=== PATIENT | female | born 1935 | race Caucasian/White ===

== ENCOUNTER 2018-04-11 07:30 | Emergency (ER) | payer MEDICARE, OTHER ==
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
[2018-04-11 08:00] VITALS: BP 139/59
== END 2018-04-11 09:00 | disposition home or self-care (01) ==
LOC: LL.ED 07:30
DX: I25.810 Atherosclerosis of coronary artery bypass graft(s) without angina pectoris (principal); E11.42 Type 2 diabetes mellitus with diabetic polyneuropathy; E78.5 Hyperlipidemia, unspecified; I10 Essential (primary) hypertension; M15.0 Primary generalized (osteo)arthritis; Z88.1 Allergy status to other antibiotic agents; Z88.8 Allergy status to other drugs, medicaments and biological substances; Z79.82 Long term (current) use of aspirin; Z79.899 Other long term (current) drug therapy
CPT/HCPCS: 99284

== ENCOUNTER 2018-05-07 14:27 | Emergency (ER) | payer OTHER ==
[2018-05-07 15:00] LABS: CHLORIDE,CL 101 mmol/L (98-107); SODIUM,NA 140 mmol/L (136-145)
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
== END 2018-05-07 16:07 | disposition home or self-care (01) ==
LOC: LL.ED 14:27
DX: S80.12XA Contusion of left lower leg, initial encounter (principal); E11.40 Type 2 diabetes mellitus with diabetic neuropathy, unspecified; F32.9 Major depressive disorder, single episode, unspecified; F41.9 Anxiety disorder, unspecified; E03.9 Hypothyroidism, unspecified; I10 Essential (primary) hypertension; I25.2 Old myocardial infarction; E78.00 Pure hypercholesterolemia, unspecified; I25.810 Atherosclerosis of coronary artery bypass graft(s) without angina pectoris; Z95.1 Presence of aortocoronary bypass graft; Z95.0 Presence of cardiac pacemaker; Z88.1 Allergy status to other antibiotic agents; Z79.82 Long term (current) use of aspirin; Z79.899 Other long term (current) drug therapy; Z79.84 Long term (current) use of oral hypoglycemic drugs
CPT/HCPCS: 36415; 72040; 72080; 80053; 81001; 85025; 99285

== ENCOUNTER 2018-05-20 22:09 | Observation (INO) | payer MEDICARE, OTHER ==
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
[2018-05-20] MEDS ORDERED: Sodium Chloride 0.9% 10 ML Syringe FLUSH PRN (22:38)
[2018-05-20] MEDS ORDERED: Metoprolol Tartrate 5 MG/5 ML SDV IVPUSH ONE (22:38)
[2018-05-20] MEDS ORDERED: Famotidine 20 MG/2 ML SDV IVPUSH ONE (22:38)
[2018-05-20] MEDS ORDERED: Nitroglycerin 0.4 MG Tab.SL SL STA (23:17)
[2018-05-20 23:29] LABS: CHLORIDE,CL 100 mmol/L (98-107); SODIUM,NA 141 mmol/L (136-145)
[2018-05-21] MEDS ORDERED: Acetaminophen/Codeine 300-30 MG Tab PO PRN (00:13)
[2018-05-21] MEDS ORDERED: Lidocaine 5% 700 MG Patch TOP PRN (00:13)
[2018-05-21] MEDS ORDERED: Acetaminophen 325 MG Tab PO PRN (00:15)
[2018-05-21] MEDS ORDERED: Sodium Chloride 0.9% 10 ML Syringe FLUSH PRN (00:15)
[2018-05-21] MEDS: Isosorbide Mononitrate 30 MG Tab.ER PO SCH ×2 (01:37→19:18)
[2018-05-21] MEDS: Levothyroxine 100 MCG Tab PO SCH ×2 (01:37→19:18)
[2018-05-21] MEDS: Enoxaparin 60 MG/0.6 ML Syringe SUBCUT SCH ×2 (01:37→23:35)
[2018-05-21] MEDS: Temazepam 15 MG Cap PO PRN ×2 (01:37→23:38)
[2018-05-21] MEDS: Calcium Carbonate 500 MG Tab.Chew PO SCH (07:29)
[2018-05-21] MEDS: Lisinopril 10 MG Tab PO SCH (07:29)
[2018-05-21] MEDS: Cholecalciferol (Vitamin D3) 1,000 Unit Tab PO SCH (07:30)
[2018-05-21] MEDS: Hydrochlorothiazide 25 MG Tab PO SCH (07:30)
[2018-05-21] MEDS: Multivitamins with Iron and Minerals Tab.Chew PO SCH (07:30)
[2018-05-21] MEDS: metFORMIN 500 MG Tab PO SCH ×2 (07:31→17:29)
[2018-05-21] MEDS: Betamethasone Dipropionate/Clotrimazole 0.05-1% Crm 15 GM Tube TOP SCH ×2 (07:32→17:29)
[2018-05-21] MEDS: Psyllium Husk Powder Sugar Free 5.85 GM Packet PO SCH ×2 (07:32→17:30)
[2018-05-21] MEDS: GARLIC 100 MG PO SCH (08:35)
--- NOTE | 2018-05-21 11:19 | PCM.PN ---
- General Info Date of Service: 05/21/18 - Review of Systems General: Reports: Weakness HEENT: Denies: Headaches Pulmonary: Reports: No Symptoms Cardiovascular: Denies: Chest Pain Gastrointestinal: Denies: Diarrhea, Nausea Genitourinary: Reports: No Symptoms Musculoskeletal: Reports: No Symptoms Skin: Reports: No Symptoms Neurological: Reports: No Symptoms Psychiatric: Reports: No Symptoms - Patient Data Vitals - Most Recent: Last Vital Signs Temp 98.6 F 05/21/18 06:42 Pulse 87 05/21/18 06:42 Resp 18 05/21/18 06:42 BP 108/67 05/21/18 06:42 Pulse Ox 99 05/21/18 06:42 Weight - Most Recent: 128 lb 0.006 oz Lab Results Last 24 Hours: Laboratory Results - last 24 hr 05/20/18 05/20/18 05/20/18 Range/Units 22:40 22:40 22:40 WBC 8.1 (4.0-10.2) K/uL RBC 4.42 (3.77-5.09) M/uL Hgb 12.5 (11.7-15.5) g/dL Hct 39.4 (34.0-46.0) % MCV 89.1 (84.0-98.0) fL MCH 28.3 (28.2-33.3) pg MCHC 31.7 (31.7-36.0) g/dL RDW 14.4 H (11.2-14.1) % Plt Count 289 (150-350) K/uL Neut % (Auto) 46.2 (45.0-80.0) % Lymph % (Auto) 40.1 (10.0-50.0) % [place] % (Auto) 9.5 (2.0-14.0) % Eos % (Auto) 3.8 (0.0-5.0) % Baso % (Auto) 0.4 (0.0-2.0) % Neut # (Auto) 3.73 (1.40-7.00) K/uL Lymph # (Auto) 3.24 (0.50-3.50) K/uL [place] # (Auto) 0.77 (0.00-1.00) K/uL Eos # (Auto) 0.31 (0.00-0.50) K/uL Baso # (Auto) 0.03 (0.00-0.20) K/uL PT 10.0 (9.8-11.7) SEC INR 0.9 APTT 24.8 (22.1-29.8) SEC D-Dimer, Quantitative 572 H (0-400) ng/mL Sodium (136-145) mmol/L Potassium (3.5-5.1) mmol/L Chloride (98-107) mmol/L Carbon Dioxide (21.0-32.0) mmol/L BUN (7-18) mg/dL Creatinine (0.51-1.17) mg/dL Est Cr Clr Drug Dosing mL/min Estimated GFR (MDRD) mL/min Glucose (74-106) mg/dL Hemoglobin A1c (4.3-5.7) % Lactic Acid (0.4-2.0) mmol/L Uric Acid (2.6-7.2) mg/dL Calcium (8.5-10.1) mg/dL Magnesium (1.8-2.4) mg/dL Total Bilirubin (0.2-1.0) mg/dL AST (15-37) U/L ALT (12-78) U/L Alkaline Phosphatase (46-116) IU/L Creatine Kinase (26-308) U/L Creatine Kinase Index (0.0-2.5) % CK-MB (CK-2) (0.00-3.60) ng/mL Troponin I (0.000-0.056) ng/mL NT-Pro-B Natriuret Pep (0-125) pg/mL Total Protein (6.4-8.2) g/dL Albumin (3.4-5.0) g/dL Triglycerides (30-150) mg/dL Cholesterol (100-200) mg/dL LDL Cholesterol, Calc (0-100) mg/dL HDL Cholesterol (40-60) mg/dL TSH, Ultra Sensitive (0.358-3.740) mIU/mL 05/20/18 05/20/18 05/21/18 Range/Units 22:40 22:40 06:25 WBC (4.0-10.2) K/uL RBC (3.77-5.09) M/uL Hgb (11.7-15.5) g/dL Hct (34.0-46.0) % MCV (84.0-98.0) fL MCH (28.2-33.3) pg MCHC (31.7-36.0) g/dL RDW (11.2-14.1) % Plt Count (150-350) K/uL Neut % (Auto) (45.0-80.0) % Lymph % (Auto) (10.0-50.0) % [place] % (Auto) (2.0-14.0) % Eos % (Auto) (0.0-5.0) % Baso % (Auto) (0.0-2.0) % Neut # (Auto) (1.40-7.00) K/uL Lymph # (Auto) (0.50-3.50) K/uL [place] # (Auto) (0.00-1.00) K/uL Eos # (Auto) (0.00-0.50) K/uL Baso # (Auto) (0.00-0.20) K/uL PT (9.8-11.7) SEC INR APTT (22.1-29.8) SEC D-Dimer, Quantitative (0-400) ng/mL Sodium 141 (136-145) mmol/L Potassium 4.2 (3.5-5.1) mmol/L Chloride 100 (98-107) mmol/L Carbon Dioxide 32.5 H (21.0-32.0) mmol/L BUN 20 H (7-18) mg/dL Creatinine 0.86 (0.51-1.17) mg/dL Est Cr Clr Drug Dosing 34.35 mL/min Estimated GFR (MDRD) > 60 mL/min Glucose 163 H (74-106) mg/dL Hemoglobin A1c (4.3-5.7) % Lactic Acid 0.2 L (0.4-2.0) mmol/L Uric Acid 5.2 (2.6-7.2) mg/dL Calcium 9.3 (8.5-10.1) mg/dL Magnesium 2.0 (1.8-2.4) mg/dL Total Bilirubin 0.3 (0.2-1.0) mg/dL AST 21 (15-37) U/L ALT 26 (12-78) U/L Alkaline Phosphatase 106 (46-116) IU/L Creatine Kinase 65 32 (26-308) U/L Creatine Kinase Index 1.5 2.8 H (0.0-2.5) % CK-MB (CK-2) 1.00 0.90 (0.00-3.60) ng/mL Troponin I 0.000 0.000 (0.000-0.056) ng/mL NT-Pro-B Natriuret Pep 291 H (0-125) pg/mL Total Protein 7.7 (6.4-8.2) g/dL Albumin 3.7 (3.4-5.0) g/dL Triglycerides 165 H (30-150) mg/dL Cholesterol 254 H (100-200) mg/dL LDL Cholesterol, Calc 170 H (0-100) mg/dL HDL Cholesterol 51 (40-60) mg/dL TSH, Ultra Sensitive 13.391 H (0.358-3.740) mIU/mL 05/21/18 Range/Units 06:25 WBC (4.0-10.2) K/uL RBC (3.77-5.09) M/uL Hgb (11.7-15.5) g/dL Hct (34.0-46.0) % MCV (84.0-98.0) fL MCH (28.2-33.3) pg MCHC (31.7-36.0) g/dL RDW (11.2-14.1) % Plt Count (150-350) K/uL Neut % (Auto) (45.0-80.0) % Lymph % (Auto) (10.0-50.0) % [place] % (Auto) (2.0-14.0) % Eos % (Auto) (0.0-5.0) % Baso % (Auto) (0.0-2.0) % Neut # (Auto) (1.40-7.00) K/uL Lymph # (Auto) (0.50-3.50) K/uL [place] # (Auto) (0.00-1.00) K/uL Eos # (Auto) (0.00-0.50) K/uL Baso # (Auto) (0.00-0.20) K/uL PT (9.8-11.7) SEC INR APTT (22.1-29.8) SEC D-Dimer, Quantitative (0-400) ng/mL Sodium (136-145) mmol/L Potassium (3.5-5.1) mmol/L Chloride (98-107) mmol/L Carbon Dioxide (21.0-32.0) mmol/L BUN (7-18) mg/dL Creatinine (0.51-1.17) mg/dL Est Cr Clr Drug Dosing mL/min Estimated GFR (MDRD) mL/min Glucose (74-106) mg/dL Hemoglobin A1c 6.7 H (4.3-5.7) % Lactic Acid (0.4-2.0) mmol/L Uric Acid (2.6-7.2) mg/dL Calcium (8.5-10.1) mg/dL Magnesium (1.8-2.4) mg/dL Total Bilirubin (0.2-1.0) mg/dL AST (15-37) U/L ALT (12-78) U/L Alkaline Phosphatase (46-116) IU/L Creatine Kinase (26-308) U/L Creatine Kinase Index (0.0-2.5) % CK-MB (CK-2) (0.00-3.60) ng/mL Troponin I (0.000-0.056) ng/mL NT-Pro-B Natriuret Pep (0-125) pg/mL Total Protein (6.4-8.2) g/dL Albumin (3.4-5.0) g/dL Triglycerides (30-150) mg/dL Cholesterol (100-200) mg/dL LDL Cholesterol, Calc (0-100) mg/dL HDL Cholesterol (40-60) mg/dL TSH, Ultra Sensitive (0.358-3.740) mIU/mL Med Orders - Current: Current Medications Acetaminophen (Tylenol) 650 mg PO Q4H PRN PRN Reason: Pain Acetaminophen/Codeine Phosphate (Tylenol With Codeine No.3 300mg/30mg) 1 tab PO Q12HR PRN PRN Reason: Pain Betamethasone/Clotrimazole (Lotrisone) 1 gm TOP BID [facility] Last Admin: 05/21/18 07:32 Dose: 1 applic Calcium Carbonate/Glycine (Tums) 500 mg PO DAILY [facility] Last Admin: 05/21/18 07:29 Dose: 500 mg Cholecalciferol (Vitamin D3) 5,000 units PO DAILY [facility] Last Admin: 05/21/18 07:30 Dose: 5,000 units Enoxaparin Sodium (Lovenox) 60 mg SUBCUT Q24H [facility] Last Admin: 05/21/18 01:37 Dose: 60 mg Hydrochlorothiazide (Hydrochlorothiazide) 25 mg PO DAILY [facility] Last Admin: 05/21/18 07:30 Dose: 25 mg Isosorbide Mononitrate (Imdur) 30 mg PO BEDTIME [facility] Last Admin: 05/21/18 01:37 Dose: 30 mg Levothyroxine Sodium (Synthroid) 100 mcg PO BEDTIME [facility] Last Admin: 05/21/18 01:37 Dose: 100 mcg Lidocaine (Lidoderm 5%) 700 mg TOP Q12H PRN PRN Reason: Pain Lisinopril (Prinivil) 10 mg PO DAILY [facility] Last Admin: 05/21/18 07:29 Dose: 10 mg Metformin HCl (Glucophage) 500 mg PO BIDMEALS [facility] Last Admin: 05/21/18 07:31 Dose: 500 mg Multivitamins/Folic Acid/Vitamin C (Cerovite Jr) 1 each PO DAILY [facility] Last Admin: 05/21/18 07:30 Dose: 1 each Nitroglycerin (Nitrostat) 0.4 mg SL ONETIME STA Stop: 05/21/18 23:18 Last Admin: 05/20/18 23:27 Dose: 0.4 mg Non-Formulary Medication (Garlic [Garlic]) 100 mg PO DAILY [facility] Last Admin: 05/21/18 08:35 Dose: Not Given Psyllium Husk (Metamucil Sugar Free) 1 pkt PO BID [facility] Last Admin: 05/21/18 07:32 Dose: 1 pkt Sodium Chloride (Saline Flush) 10 ml FLUSH ASDIRECTED PRN PRN Reason: Keep Vein Open Sodium Chloride (Saline Flush) 10 ml FLUSH Q12HR PRN PRN Reason: Keep Vein Open Temazepam (Restoril) 15 mg PO BEDTIME PRN PRN Reason: Insomnia Last Admin: 05/21/18 01:37 Dose: 15 mg Discontinued Medications Famotidine (Pepcid) 40 mg IVPUSH ONETIME ONE Stop: 05/20/18 22:39 Last Admin: 05/20/18 22:51 Dose: 40 mg Metoprolol Tartrate (Lopressor) 2.5 mg IVPUSH ONETIME ONE Stop: 05/20/18 22:39 Last Admin: 05/20/18 22:51 Dose: 2.5 mg - Exam General: Alert (daughter denies confusion at home), Oriented HEENT: Pupils Equal, Pupils Reactive, EOMI, Mucous Membr. Moist/[place] Neck: Supple Lungs: Clear to Auscultation, Normal Respiratory Effort Cardiovascular: Regular Rate, Regular Rhythm GI/Abdominal Exam: Normal Bowel Sounds, Soft, Non-Tender, No Organomegaly, No Distention, No Abnormal Bruit, No Mass, Pelvis Stable (Female) Exam: Deferred Back Exam: Normal Inspection, Full Range of Motion Extremities: Normal Inspection, Normal Range of Motion, Non-Tender, No Pedal Edema, Normal Capillary Refill Neurological: No New Focal Deficit (patient's daughter denies confusion at home) Psy/Mental Status: Alert, Normal Affect, Normal Mood - Problem List & Annotations (1) CHF (congestive heart failure) SNOMED Code(s): 70834797 Code(s): I50.9 - HEART FAILURE, UNSPECIFIED Status: Acute Priority: High Current Visit: No Onset Date: 05/20/18 Qualifiers: Heart failure type: unspecified Heart failure chronicity: acute Qualified Code(s): I50.9 - Heart failure, unspecified Annotation/Comment:: lisinopril therapy for blood pressure control and treatment of her CHF. Consider echocardiogram on an outpatient basis. (2) Elevated d-dimer SNOMED Code(s): 527559112 Code(s): R79.89 - OTHER SPECIFIED ABNORMAL FINDINGS OF BLOOD CHEMISTRY Status: Acute Priority: High Current Visit: No Onset Date: 05/20/18 Annotation/Comment:: D Dimer ordered for AM (3) Hypertension SNOMED Code(s): 31596783 Code(s): I10 - ESSENTIAL (PRIMARY) HYPERTENSION Status: Chronic Priority : Medium Current Visit: No Qualifiers: Hypertension type: essential hypertension Qualified Code(s): I10 - Essential (primary) hypertension Annotation/Comment:: Continue to observe closely and monitor BP - Problem List Review Problem List Initiated/Reviewed/Updated: Yes - My Orders Last 24 Hours: My Active Orders 05/21/18 Breakfast Heart Healthy Diet [DIET] - Plan Plan:: As above
[2018-05-22 07:58] LABS: CHLORIDE,CL 101 mmol/L (98-107); SODIUM,NA 140 mmol/L (136-145)
[2018-05-22] MEDS: Multivitamins with Iron and Minerals Tab.Chew PO SCH (08:11)
[2018-05-22] MEDS: metFORMIN 500 MG Tab PO SCH (08:13)
[2018-05-22] MEDS: Hydrochlorothiazide 25 MG Tab PO SCH (08:13)
[2018-05-22] MEDS: Lisinopril 10 MG Tab PO SCH (08:14)
[2018-05-22] MEDS: Cholecalciferol (Vitamin D3) 1,000 Unit Tab PO SCH (08:14)
[2018-05-22] MEDS: Calcium Carbonate 500 MG Tab.Chew PO SCH (08:16)
[2018-05-22] MEDS: GARLIC 100 MG PO SCH (08:19)
[2018-05-22] MEDS: Psyllium Husk Powder Sugar Free 5.85 GM Packet PO SCH (08:20)
[2018-05-22] MEDS: Betamethasone Dipropionate/Clotrimazole 0.05-1% Crm 15 GM Tube TOP SCH (08:21)
--- NOTE | 2018-05-22 09:12 | PCM.DCSUM1 ---
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 Negative (NEGATIVE) Urine Urobilinogen 0.2 (0.2-1.0) E.U./dL Ur Leukocyte Esterase Trace H (NEGATIVE) Urine RBC 0-5 /HPF Urine WBC 5-10 H /HPF Ur Epithelial Cells Few /LPF Urine Bacteria Rare (NONE TO FEW) /HPF 05/22/18 05/22/18 05/22/18 Range/Units 06:55 06:55 06:55 WBC 8.6 (4.0-10.2) K/uL RBC 4.10 (3.77-5.09) M/uL Hgb 11.5 L (11.7-15.5) g/dL Hct 36.2 (34.0-46.0) % MCV 88.3 (84.0-98.0) fL MCH 28.0 L (28.2-33.3) pg MCHC 31.8 (31.7-36.0) g/dL RDW 14.2 H (11.2-14.1) % Plt Count 296 (150-350) K/uL Neut % (Auto) 56.5 (45.0-80.0) % Lymph % (Auto) 30.8 (10.0-50.0) % [place] % (Auto) 9.0 (2.0-14.0) % Eos % (Auto) 3.3 (0.0-5.0) % Baso % (Auto) 0.4 (0.0-2.0) % Neut # (Auto) 4.84 (1.40-7.00) K/uL Lymph # (Auto) 2.64 (0.50-3.50) K/uL [place] # (Auto) 0.77 (0.00-1.00) K/uL Eos # (Auto) 0.28 (0.00-0.50) K/uL Baso # (Auto) 0.03 (0.00-0.20) K/uL PT (9.8-11.7) SEC INR APTT (22.1-29.8) SEC D-Dimer, Quantitative 715 H (0-400) ng/mL Sodium 140 (136-145) mmol/L Potassium 3.9 (3.5-5.1) mmol/L Chloride 101 (98-107) mmol/L Carbon Dioxide 31.5 (21.0-32.0) mmol/L BUN 20 H (7-18) mg/dL Creatinine 0.73 (0.51-1.17) mg/dL Est Cr Clr Drug Dosing 40.47 mL/min Estimated GFR (MDRD) > 60 mL/min Glucose 116 H (74-106) mg/dL Hemoglobin A1c (4.3-5.7) % Lactic Acid (0.4-2.0) mmol/L Uric Acid (2.6-7.2) mg/dL Calcium 9.3 (8.5-10.1) mg/dL Magnesium (1.8-2.4) mg/dL Total Bilirubin 0.3 (0.2-1.0) mg/dL AST 10 L (15-37) U/L ALT 13 (12-78) U/L Alkaline Phosphatase 94 (46-116) IU/L Creatine Kinase 28 (26-308) U/L Creatine Kinase Index 2.5 (0.0-2.5) % CK-MB (CK-2) 0.70 (0.00-3.60) ng/mL Troponin I 0.000 (0.000-0.056) ng/mL NT-Pro-B Natriuret Pep 118 (0-125) pg/mL Total Protein 6.8 (6.4-8.2) g/dL Albumin 3.3 L (3.4-5.0) g/dL Triglycerides (30-150) mg/dL Cholesterol (100-200) mg/dL LDL Cholesterol, Calc (0-100) mg/dL HDL Cholesterol (40-60) mg/dL TSH, Ultra Sensitive (0.358-3.740) mIU/mL Specimen Type Urine Color Urine Appearance Urine pH (5.0-9.0) Ur Specific [place] (1.005-1.030) Urine Protein (NEGATIVE) mg/dL Urine Glucose (UA) (NEGATIVE) mg/dL Urine Ketones (NEGATIVE) mg/dL Urine Occult Blood (NEGATIVE) Urine Nitrite (NEGATIVE) Urine Bilirubin (NEGATIVE) Urine Urobilinogen (0.2-1.0) E.U./dL Ur Leukocyte Esterase (NEGATIVE) Urine RBC /HPF Urine WBC /HPF Ur Epithelial Cells /LPF Urine Bacteria (NONE TO FEW) /HPF LIZZIE Results - Last 24 hrs: Urine culture and sensitivity report pending Med Orders - Current: Current Medications Acetaminophen (Tylenol) 650 mg PO Q4H PRN PRN Reason: Pain Acetaminophen/Codeine Phosphate (Tylenol With Codeine No.3 300mg/30mg) 1 tab PO Q12HR PRN PRN Reason: Pain Betamethasone/Clotrimazole (Lotrisone) 1 gm TOP BID [facility] Last Admin: 05/22/18 08:21 Dose: 1 applic Calcium Carbonate/Glycine (Tums) 500 mg PO DAILY [facility] Last Admin: 05/22/18 08:16 Dose: Not Given Cholecalciferol (Vitamin D3) 5,000 units PO DAILY [facility] Last Admin: 05/22/18 08:14 Dose: 5,000 units Enoxaparin Sodium (Lovenox) 60 mg SUBCUT Q24H [facility] Last Admin: 07/17/18 23:35 Dose: 60 mg Hydrochlorothiazide (Hydrochlorothiazide) 25 mg PO DAILY [facility] Last Admin: 05/22/18 08:13 Dose: 25 mg Isosorbide Mononitrate (Imdur) 30 mg PO BEDTIME [facility] Last Admin: 05/21/18 19:18 Dose: 30 mg Levothyroxine Sodium (Synthroid) 100 mcg PO BEDTIME [facility] Last Admin: 05/21/18 19:18 Dose: 100 mcg Lidocaine (Lidoderm 5%) 700 mg TOP Q12H PRN PRN Reason: Pain Lisinopril (Prinivil) 10 mg PO DAILY [facility] Last Admin: 05/22/18 08:14 Dose: 10 mg Metformin HCl (Glucophage) 500 mg PO BIDMEALS [facility] Last Admin: 05/22/18 08:13 Dose: 500 mg Multivitamins/Folic Acid/Vitamin C (Cerovite Jr) 1 each PO DAILY [facility] Last Admin: 05/22/18 08:11 Dose: 1 each Non-Formulary Medication (Garlic [Garlic]) 100 mg PO DAILY [facility] Last Admin: 05/22/18 08:19 Dose: Not Given Psyllium Husk (Metamucil Sugar Free) 1 pkt PO BID [facility] Last Admin: 05/22/18 08:20 Dose: 1 pkt Sodium Chloride (Saline Flush) 10 ml FLUSH ASDIRECTED PRN PRN Reason: Keep Vein Open Sodium Chloride (Saline Flush) 10 ml FLUSH Q12HR PRN PRN Reason: Keep Vein Open Temazepam (Restoril) 15 mg PO BEDTIME PRN PRN Reason: Insomnia Last Admin: 05/21/18 23:38 Dose: 15 mg Discontinued Medications Famotidine (Pepcid) 40 mg IVPUSH ONETIME ONE Stop: 05/20/18 22:39 Last Admin: 05/20/18 22:51 Dose: 40 mg Metoprolol Tartrate (Lopressor) 2.5 mg IVPUSH ONETIME ONE Stop: 05/20/18 22:39 Last Admin: 05/20/18 22:51 Dose: 2.5 mg Nitroglycerin (Nitrostat) 0.4 mg SL ONETIME STA Stop: 05/21/18 23:18 Last Admin: 05/20/18 23:27 Dose: 0.4 mg - Exam Quality Assessment: Reports: Supplemental Oxygen, DVT Prophylaxis. Denies: Central Line/PICC, Urine Catheter, Skin Breakdown, Restraints General: Reports: Alert, Oriented, Cooperative, No Acute Distress HEENT: Reports: Pupils Equal, Pupils Reactive, EOMI, Mucous Membr. Moist/[place], Other (Patient wearing glasses). Denies: Scleral Icterus Neck: Reports: Supple, Trachea Midline, No JVD, No Thyromegaly, Carotid Bruit ( Mild bilateral carotid bruits). Denies: Lymphadenopathy Lungs: Reports: Clear to Auscultation, Normal Respiratory Effort. Denies: Rub Cardiovascular: Reports: Regular Rate, Regular Rhythm, No Murmurs. Denies: Gallops, Rubs GI/Abdominal Exam: Normal Bowel Sounds, Soft, Non-Tender, No Organomegaly, No Distention, No Abnormal Bruit, No Mass, Pelvis Stable. No: Guarding (Female) Exam: Deferred Rectal (Female) Exam: Deferred Back Exam: Reports: Normal Inspection, Full Range of Motion. Denies: CVA Tenderness (L), CVA Tenderness (R), Muscle Spasm Extremities: Normal Range of Motion, Non-Tender, No Pedal Edema, Normal Capillary Refill, Other (Continued improvement of old ecchymosis of the left leg and probable tinea of the lower aspects of the right leg). No: Luisito's Sign Skin: Reports: Rash (As above), Ecchymosis (As above) Neurological: Reports: No New Focal Deficit, Other (No clinical orthostasis) Psy/Mental Status: Reports: Alert, Normal Affect, Normal Mood. Denies: Agitated , Hallucinations, Withdrawal Symptoms EKG INTERPRETATION EKG Date: 05/22/18 Time: 07:23 Rhythm: NSR (With no paced beats) Rate (Beats/Min): 69 [place]: RAD-Right [place]sey Deviation P-Wave: Enlarged (Mild diffuse biphasic P waves with no pacer spikes and extreme poor R-wave progression in the anterior leads) QRS: LBBB (0.14 seconds representing a complete left bundle branch block and bifascicular bundle branch block) ST-T: Other (Resolved T-wave inversion in lead V6 with persistent T-wave inversions and nonspecific downsloping ST depressions in leads 2, 3, and aVF) Comparison: Change From Previous EKG (As above since 05/21/18) EKG Interpretation Comments: 1. Stable inferior wall ischemia with history of inferolateral ischemia 2. Left atrial enlargement 3. 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 History of demand pacemaker with intermittent independent rhythm
== END 2018-05-22 12:10 | disposition home or self-care (01) ==
LOC: LL.ED 22:09 → LL.MS 23:45 → INTOOBSV 23:45
PROVIDERS: ADMIT Family Medicine; ATTEND Family Medicine
DX: I25.810 Atherosclerosis of coronary artery bypass graft(s) without angina pectoris (principal); I11.0 Hypertensive heart disease with heart failure; I50.9 Heart failure, unspecified; J43.1 Panlobular emphysema; E11.42 Type 2 diabetes mellitus with diabetic polyneuropathy; I44.7 Left bundle-branch block, unspecified; E78.5 Hyperlipidemia, unspecified; R79.89 Other specified abnormal findings of blood chemistry; E03.9 Hypothyroidism, unspecified; D64.9 Anemia, unspecified; B35.4 Tinea corporis; M19.90 Unspecified osteoarthritis, unspecified site; Z95.0 Presence of cardiac pacemaker; Z79.82 Long term (current) use of aspirin; Z79.84 Long term (current) use of oral hypoglycemic drugs; Z79.899 Other long term (current) drug therapy
CPT/HCPCS: 36415; 71045; 80053; 80061; 81001; 82550; 82553; 83036; 83605; 83735; 83880; 84443; 84484; 84550; 85025; 85379; 85610; 85730; 87086; 93005; 93970; 96372; 96374; 96375; 99285; A9270-GY; G0378; J1650; J3490

== ENCOUNTER 2019-03-18 21:49 | Emergency (ER) | payer MEDICARE, OTHER ==
[2019-03-18 22:51] LABS: CHLORIDE,CL 101 mmol/L (98-107); SODIUM,NA 143 mmol/L (136-145)
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
== END 2019-03-18 23:25 | disposition home or self-care (01) ==
LOC: LL.ED 21:49
DX: R47.02 Dysphasia (principal); I10 Essential (primary) hypertension; I25.10 Atherosclerotic heart disease of native coronary artery without angina pectoris; I25.2 Old myocardial infarction; M19.90 Unspecified osteoarthritis, unspecified site; E03.9 Hypothyroidism, unspecified; E11.9 Type 2 diabetes mellitus without complications; Z98.49 Cataract extraction status, unspecified eye; Z98.890 Other specified postprocedural states; Z95.1 Presence of aortocoronary bypass graft; Z95.5 Presence of coronary angioplasty implant and graft; Z90.49 Acquired absence of other specified parts of digestive tract; Z90.710 Acquired absence of both cervix and uterus; Z88.6 Allergy status to analgesic agent; Z88.8 Allergy status to other drugs, medicaments and biological substances; Z79.82 Long term (current) use of aspirin; Z79.899 Other long term (current) drug therapy
CPT/HCPCS: 36415; 71046; 80053; 82270; 84484; 85025; 93005; 99284-25

== ENCOUNTER 2019-04-28 16:18 | Emergency (ER) | payer MEDICARE, OTHER ==
[2019-04-28] MEDS ORDERED: Sodium Chloride 0.9% 10 ML Syringe FLUSH PRN (16:56)
[2019-04-28] MEDS ORDERED: Sodium Chloride 0.9% 250 ML IV SCH (17:00)
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
[2019-04-28 17:47] LABS: CHLORIDE,CL 102 mmol/L (98-107); SODIUM,NA 141 mmol/L (136-145)
[2019-04-28] MEDS ORDERED: Meclizine 25 MG Tab PO ONE (17:53)
[2019-04-28] MEDS ORDERED: Ondansetron 4 MG Tab.DIS PO ONE (17:53)
== END 2019-04-28 19:00 | disposition home or self-care (01) ==
LOC: LL.ED 16:18
DX: T67.6XXA Heat fatigue, transient, initial encounter (principal); E86.0 Dehydration; E83.42 Hypomagnesemia; I10 Essential (primary) hypertension; I25.2 Old myocardial infarction; I25.10 Atherosclerotic heart disease of native coronary artery without angina pectoris; M19.90 Unspecified osteoarthritis, unspecified site; F41.9 Anxiety disorder, unspecified; F32.9 Major depressive disorder, single episode, unspecified; E11.40 Type 2 diabetes mellitus with diabetic neuropathy, unspecified; E03.9 Hypothyroidism, unspecified; Z98.49 Cataract extraction status, unspecified eye; Z98.890 Other specified postprocedural states; Z95.1 Presence of aortocoronary bypass graft; Z95.5 Presence of coronary angioplasty implant and graft; Z90.710 Acquired absence of both cervix and uterus; Z79.82 Long term (current) use of aspirin; Z79.84 Long term (current) use of oral hypoglycemic drugs; Z79.899 Other long term (current) drug therapy; Z88.6 Allergy status to analgesic agent; Z88.8 Allergy status to other drugs, medicaments and biological substances
CPT/HCPCS: 36415; 80053; 81001; 82550; 82553; 82962; 83735; 84484; 85025; 93005; 93010; 96360; 99283; 99284-25; A9270-GY; J7050

== ENCOUNTER 2019-05-15 08:01 | Day surgery (SDC) | payer MEDICARE, OTHER ==
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
[2019-05-15] MEDS ORDERED: Propofol 200 MG/20 ML SDV ONE ×2 (08:29→09:11)
[2019-05-15] MEDS ORDERED: Lidocaine 2% 100 MG/5 ML Syringe ONE (09:11)
--- NOTE | 2019-05-15 09:13 | PCM.HPR ---
H & P Addendum review - H & P Addendum Review Date of Original H & P: 05/12/19 Date Reviewed: 05/15/19 Time Reviewed: 09:05 Patient was Examined: No Changes
--- NOTE | 2019-05-15 09:30 | PCM.OPNOTE ---
- General Post-Op/Procedure Note Date of Surgery/Procedure: 05/15/19 Operative Procedure(s): EGD with bx Findings: Gastritis, Distal Esophagitis with stricture Pre Op Diagnosis: Dysphasia Post-Op Diagnosis: Same Anesthesia Technique: BEULAH Primary Surgeon: Bebo Loaiza Anesthesia Provider: Sadie Phillips Complications: None Condition: Good
--- NOTE | 2019-05-15 14:22 | OR ---
Date of Procedure: 05/15/2019 PREOPERATIVE DIAGNOSIS: Dysphagia. POSTOPERATIVE DIAGNOSES: 1. Distal esophagitis with stricture. 2. Gastritis of the antrum. PROCEDURE: Esophagogastroduodenoscopy with biopsy. ANESTHESIA: IV sedation. DESCRIPTION OF PROCEDURE: The patient was brought to the procedure room where she was placed on her left side and IV sedation administered. Oral bite block was placed and the upper endoscope advanced into the esophagus under direct vision without difficulty. Scope was advanced to the third portion of the duodenum. Duodenum and pylorus were normal. Antrum has evidence of chronic gastritis, but no ulcers or erosions. I did take biopsies from here. The body and fundus appeared normal. Retroflexion was normal. The squamocolumnar junction was inflamed, and there was a slight stricture, but I was able to pass the scope through this. I also biopsied the distal esophagus which does have evidence of acute and chronic inflammation. Air was removed from the stomach and the scope withdrawn. The patient tolerated the procedure well and returned to Recovery in stable condition. The patient will follow up with Heather Arteaga next week for review of pathology report. I would recommend that she be treated with proton pump inhibitor for 6 weeks to allow the inflammation to heal. I suspect this will help the swelling and stricture and thus resolve her dysphagia. If the dysphagia persists, then she could be considered for dilatation. ALYSON ARNDT MD /[id number]
== END 2019-05-15 10:47 | disposition home or self-care (01) ==
LOC: LL.SDS 08:01
PROVIDERS: ATTEND Surgery
DX: K20.9 Esophagitis, unspecified (principal); K22.2 Esophageal obstruction; K29.70 Gastritis, unspecified, without bleeding; E78.2 Mixed hyperlipidemia; E03.9 Hypothyroidism, unspecified; I25.10 Atherosclerotic heart disease of native coronary artery without angina pectoris; E11.3213 Type 2 diabetes mellitus with mild nonproliferative diabetic retinopathy with macular edema, bilateral; I10 Essential (primary) hypertension; M17.12 Unilateral primary osteoarthritis, left knee; L21.9 Seborrheic dermatitis, unspecified; E78.5 Hyperlipidemia, unspecified; E66.9 Obesity, unspecified; Z68.32 Body mass index [BMI] 32.0-32.9, adult; Z79.899 Other long term (current) drug therapy; Z79.84 Long term (current) use of oral hypoglycemic drugs; Z79.82 Long term (current) use of aspirin; Z88.6 Allergy status to analgesic agent; Z88.8 Allergy status to other drugs, medicaments and biological substances
CPT/HCPCS: 00731; 43239; 82962; J2001; J2704; 88305

== ENCOUNTER 2019-10-25 15:31 | Emergency (ER) | payer MEDICARE, OTHER ==
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
[2019-10-25 18:21] LABS: CHLORIDE,CL 97 mmol/L (98-107); SODIUM,NA 135 mmol/L (136-145)
== END 2019-10-25 19:05 | disposition home or self-care (01) ==
LOC: LL.ED 15:31
DX: M54.2 Cervicalgia (principal); I10 Essential (primary) hypertension; E78.00 Pure hypercholesterolemia, unspecified; M19.90 Unspecified osteoarthritis, unspecified site; F41.9 Anxiety disorder, unspecified; F32.9 Major depressive disorder, single episode, unspecified; E03.9 Hypothyroidism, unspecified; E11.42 Type 2 diabetes mellitus with diabetic polyneuropathy; Z95.5 Presence of coronary angioplasty implant and graft; Z87.891 Personal history of nicotine dependence; Z88.8 Allergy status to other drugs, medicaments and biological substances; Z79.82 Long term (current) use of aspirin; Z79.84 Long term (current) use of oral hypoglycemic drugs; Z79.899 Other long term (current) drug therapy
CPT/HCPCS: 36415; 72125; 80053; 83735; 85025; 99284-25

== ENCOUNTER 2021-01-25 17:03 | Emergency (ER) | payer MEDICARE, OTHER ==
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
== END 2021-01-25 19:15 | disposition home or self-care (01) ==
LOC: LL.ED 17:03
DX: R42 Dizziness and giddiness (principal); I10 Essential (primary) hypertension; M19.90 Unspecified osteoarthritis, unspecified site; E11.42 Type 2 diabetes mellitus with diabetic polyneuropathy; E03.9 Hypothyroidism, unspecified; Z88.6 Allergy status to analgesic agent; Z88.5 Allergy status to narcotic agent; Z88.8 Allergy status to other drugs, medicaments and biological substances; Z79.82 Long term (current) use of aspirin; Z79.84 Long term (current) use of oral hypoglycemic drugs; Z79.899 Other long term (current) drug therapy
CPT/HCPCS: 36415; 80048; 81001; 83735; 85025; 87086; 99283; 99284

== ENCOUNTER 2021-04-06 23:20 | Observation (INO) | payer MEDICARE, OTHER ==
--- NOTE | 2021-04-06 23:35 | EDM.PDOC ---
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 Medications Generic Name Dose Route Start Last Admin Trade Name Freq PRN Reason Stop Dose Admin Famotidine 40 mg 04/06/21 23:36 04/07/21 00:05 Famotidine 20 Mg/2 Ml Sdv IVPUSH 04/06/21 23:37 40 mg ONETIME ONE Administration Ondansetron HCl 4 mg 04/06/21 23:36 04/07/21 00:04 Ondansetron 4 Mg/2 Ml Sdv IVPUSH 04/06/21 23:37 4 mg ONETIME ONE Administration Pantoprazole Sodium 40 mg 04/06/21 23:36 04/07/21 00:04 Pantoprazole 40 Mg Vial IVPUSH 04/06/21 23:37 40 mg ONETIME ONE Administration Sodium Chloride 1 ml 04/07/21 00:54 04/07/21 01:07 Sodium Chloride 0.65% Nasal [place] 45 Ml Bottle RADHA 04/07/21 00:55 1 ml ONETIME ONE Administration - Radiology Interpretation Free Text/Narrative:: Acute abdominal x-ray shows evidence moderate diffuse stool with no significant gaseous distention, free air, ileus, obstruction, etc. Moderate scoliosis with additional osteoarthritic and osteoporotic changes. Mild to moderate cardiomegaly with mild prominence of the proximal aortic arch with mild aortic valve calcification but no evidence of CHF, pulmonary infiltrates, pneumothorax, etc. Moderate pulmonary obstructive disease noted. Note status post medial sternotomy and pacemaker placement. Departure - Departure Time of Disposition: 01:15 Disposition: Refer to Observation Condition: Fair Clinical Impression: Peptic reflux disease, Confusion, Elevated lactic acid level, Hyperuricemia Abdominal pain Qualifiers: Abdominal location: generalized Qualified Code(s): R10.84 - Generalized abdominal pain COPD (chronic obstructive pulmonary disease) Qualifiers: COPD type: emphysema Emphysema type: panlobular Qualified Code(s): J43.1 - Panlobular emphysema Coronary artery disease Qualifiers: Coronary Disease-Associated Artery/Lesion type: bypass graft [place] vs. transplanted heart: [place] heart Associated angina: without angina Qualified Code(s): I25.810 - Atherosclerosis of coronary artery bypass graft(s) without angina pectoris Hypertension Qualifiers: Hypertension type: essential hypertension Qualified Code(s): I10 - Essential (primary) hypertension - Discharge Information *PRESCRIPTION DRUG MONITORING PROGRAM REVIEWED*: Not Applicable *COPY OF PRESCRIPTION DRUG MONITORING REPORT IN PATIENT RENALDO: Not Applicable Forms: ED Department Discharge Sepsis Event Note (ED) - Evaluation Sepsis Screening Result: No Definite Risk - Focused Exam Vital Signs: Vital Signs Temp Pulse Resp BP Pulse Ox 04/07/21 00:52 82 14 168/80 H 94 L 04/06/21 23:30 83 14 176/67 H 96 04/06/21 23:27 36.6 C 80 14 191/69 H 95 - Problem List & Annotations (1) Abdominal pain SNOMED Code(s): 17961956 Code(s): R10.9 - UNSPECIFIED ABDOMINAL PAIN Status: Acute Priority: High Onset Date: 04/07/21 Annotation/Comment:: Note history of chronic constipation with borderline stool impaction by today's exam. High-dose IV Pepcid and IV Protonix were given as GI prophylaxis. No evidence of ileus, obstruction, etc. with no indication for antibiotics at this time in spite of lactic acid elevation as below/above. Symptoms likely secondary to severe constipation borderline stool impaction. Magnesium sulfate and MiraLAX to be given with additional fleets enema, saline enema, etc. depending on her clinical course. Qualifiers: Abdominal location: generalized Qualified Code(s): R10.84 - Generalized abd ominal pain (2) Elevated lactic acid level SNOMED Code(s): 1168003 Code(s): R79.89 - OTHER SPECIFIED ABNORMAL FINDINGS OF BLOOD CHEMISTRY Status: Acute Priority: High Onset Date: 04/07/21 Annotation/Comment:: Lactic acid elevation with no direct evidence of infection or sepsis, including no leukocytosis, fever, etc. 1 L lactated Ringer's IV bolus given in the emergency room. No evidence of UTI or pneumonia. Delay blood cultures for now as above. Lactic acid level to be repeated with blood work in the a.m.. (3) Peptic reflux disease SNOMED Code(s): 558520055 Code(s): K21.9 - GASTRO-ESOPHAGEAL REFLUX DISEASE WITHOUT ESOPHAGITIS Status: Chronic Priority: Medium Annotation/Comment:: No evidence of acute GI bleed with high-dose IV Pepcid Ig Protonix given as above. (4) Coronary artery disease SNOMED Code(s): 94812747 Code(s): I25.10 - ATHSCL HEART DISEASE OF [place] CORONARY ARTERY W/O ANG PCTRS Status: Chronic Priority: High Annotation/Comment:: No chest pain or anginal type symptoms. Note previous history of CHF and pacemaker placement with possible persistent inferolateral cardiac ischemia by distant EKGs. Qualifiers: Coronary Disease-Associated Artery/Lesion type: bypass graft [place] vs. transplanted heart: [place] heart Associated angina: without angina Qualified Code(s): I25.810 - Atherosclerosis of coronary artery bypass graft(s) without angina pectoris (5) COPD (chronic obstructive pulmonary disease) SNOMED Code(s): 19976317 Code(s): J44.9 - CHRONIC OBSTRUCTIVE PULMONARY DISEASE, UNSPECIFIED Status: Chronic Priority: Medium Onset Date: 05/20/18 Annotation/Comment:: COPD by chest x-ray with no current medical therapy required. No recent history of fever or bronchitic type symptoms. Consider PFTs by her regular providers. COVID-19 rapid test was negative with apparent previous history of COVID-19 infection in November 2019. The patient and her family refused COVID-19 immunization. Her daughter became extremely confrontational when she discovered that we did collect a COVID test. The daughter insisted that we flush her naris with saline where we collected the COVID-19 test stating that the test swab was contaminated in her opinion since this was made in [place]. Qualifiers: COPD type: emphysema Emphysema type: panlobular Qualified Code(s): J43.1 - Panlobular emphysema (6) Hypertension SNOMED Code(s): 29268446 Code(s): I10 - ESSENTIAL (PRIMARY) HYPERTENSION Status: Chronic Priority: Medium Annotation/Comment:: Blood Pressures somewhat elevated in the emergency room with some improvement without medical therapy. Continue to observe closely during this hospitalization and by her regular provider. Qualifiers: Hypertension type: essential hypertension Qualified Code(s): I10 - Essent ial (primary) hypertension (7) Confusion SNOMED Code(s): 876092724 Code(s): R41.0 - DISORIENTATION, UNSPECIFIED Status: Chronic Priority: Medium Annotation/Comment:: Stable mild organic brain syndrome (8) Hypomagnesemia SNOMED Code(s): 802175282 Code(s): E83.42 - HYPOMAGNESEMIA Status: Chronic Priority: Medium Annotation/Comment:: Persistent hypomagnesemia. Medication supplementation and adjustment during this hospitalization. (9) Hyperuricemia SNOMED Code(s): 75250602 Code(s): E79.0 - HYPERURICEMIA W/O SIGNS OF INFLAM ARTHRIT AND TOPHACEOUS DIS Status: Acute Priority: Medium Current Visit: Yes Onset Date: 04/06/21 Annotation/Comment:: Newly diagnosed. No gout type symptoms. Her arthritis is otherwise stable. - Problem List Review Problem List Initiated/Reviewed/Updated: Yes - My Orders Last 24 Hours: My Active Orders 04/06/21 Breakfast Nothing Per Oral Diet [DIET] 04/06/21 23:36 Abdomen Series w Chest 1V [CR] Stat Sodium Chloride 0.9% [Saline Flush] 10 ml FLUSH ASDIRECTED PRN Obtain Past Medical Record [OM.PC] Urgent Peripheral IV Insertion Adult [OM.PC] Stat Resuscitation Status Stat 04/06/21 23:37 Peripheral IV Care [RC] . DIRECTED 04/06/21 23:45 CULTURE URINE [RM] Stat 04/07/21 00:33 Lactated Ringers [Ringers, Lactated] 1,000 ml IV .BOLUS - Assessment/Plan Admission H&P: Please use this note as an admission H&P Last 24 Hours: My Active Orders 04/06/21 Breakfast Nothing Per Oral Diet [DIET] 04/06/21 23:36 Abdomen Series w Chest 1V [CR] Stat Sodium Chloride 0.9% [Saline Flush] 10 ml FLUSH ASDIRECTED PRN Obtain Past Medical Record [OM.PC] Urgent Peripheral IV Insertion Adult [OM.PC] Stat Resuscitation Status Stat 04/06/21 23:37 Peripheral IV Care [RC] . DIRECTED 04/06/21 23:45 CULTURE URINE [RM] Stat 04/07/21 00:33 Lactated Ringers [Ringers, Lactated] 1,000 ml IV .BOLUS Assessment:: As above Plan: As above. Extensive precautions were given to the patient and her daughter, who are in agreement with the treatment plan. The patient's condition is stable enough for observation status and general supervision.
[2021-04-06] MEDS ORDERED: Pantoprazole 40 MG Vial IVPUSH ONE (23:36)
[2021-04-06] MEDS ORDERED: Ondansetron 4 MG/2 ML SDV IVPUSH ONE (23:36)
[2021-04-06] MEDS ORDERED: Famotidine 20 MG/2 ML SDV IVPUSH ONE (23:36)
[2021-04-07] MEDS: Sodium Chloride 0.9% 10 ML Syringe FLUSH PRN ×2 (00:05→11:44)
[2021-04-07] MEDS ORDERED: Lactated Ringers 1,000 ML IV ONE (00:33)
[2021-04-07 00:38] LABS: CHLORIDE,CL 101 mmol/L (98-107); SODIUM,NA 141 mmol/L (136-145)
[2021-04-07] MEDS ORDERED: Sodium Chloride 0.65% Nasal Spray 45 ML Bottle NAS ONE (00:54)
[2021-04-07] MEDS ORDERED: Cyclobenzaprine 10 MG Tab PO PRN (01:28)
[2021-04-07] MEDS ORDERED: Polyethylene Glycol 3350 Powder 17 GM Packet PO ONE (01:31)
[2021-04-07] MEDS ORDERED: Magnesium Citrate Solution 296 ML Bottle PO ONE (01:31)
[2021-04-07] MEDS ORDERED: Ondansetron 4 MG/2 ML SDV IVPUSH PRN (01:32)
[2021-04-07] MEDS ORDERED: Acetaminophen 325 MG Tab PO PRN (01:32)
[2021-04-07] MEDS ORDERED: Lactated Ringers 1,000 ML IV SCH (01:45)
[2021-04-07] MEDS: Vitamin E (dl-alpha-tocopherol acetate) 400 Unit Cap PO SCH (07:43)
[2021-04-07] MEDS: Aspirin 81 MG Tab.EC PO SCH ×2 (07:43→17:37)
[2021-04-07] MEDS: Hydrochlorothiazide 25 MG Tab PO SCH (07:43)
[2021-04-07] MEDS: metFORMIN 500 MG Tab PO SCH ×2 (07:43→17:36)
[2021-04-07] MEDS: Cholecalciferol (Vitamin D3) 5,000 UNIT Tab PO SCH (07:43)
[2021-04-07] MEDS: Sodium Chloride 0.9% 10 ML Syringe FLUSH SCH (07:44)
[2021-04-07] MEDS ORDERED: Non-Formulary Medication 1 Each PO SCH (08:00)
--- NOTE | 2021-04-07 09:07 | PCM.SN.2 ---
- Free Text/Narrative Note: TSH is mildly elevated this morning with consideration of changing to Synthroid from previous [place] preparation. Continue current medical therapy for now. Her blood pressures are improved at this time. Her lactic acid level is also improved, however still somewhat elevated. Continue IV fluids for now with patient still afebrile and no direct indication of need for antibiotics. No evidence of sepsis. She has still not had a bowel movement. Initiate Dulcolax with additional soapsuds enema later today, if this is not effective. Repeat lactic acid level in the a.m. or sooner, if fever occurs. Initiate diet with caution.
[2021-04-07] MEDS ORDERED: Bisacodyl 5 MG Tab PO ONE (09:08)
[2021-04-07] MEDS: Pantoprazole 40 MG Vial IVPUSH SCH (11:44)
[2021-04-07] MEDS ORDERED: Magnesium Oxide 400 MG Tab PO SCH (18:00)
[2021-04-07] MEDS ORDERED: Temazepam 15 MG Cap PO PRN (20:00)
[2021-04-07] MEDS ORDERED: Famotidine 20 MG/2 ML SDV IVPUSH SCH (23:00)
[2021-04-08] MEDS: Pantoprazole 40 MG Vial IVPUSH SCH ×2 (00:44→14:27)
[2021-04-08] MEDS: Sodium Chloride 0.9% 10 ML Syringe FLUSH SCH ×3 (00:45→07:42)
[2021-04-08] MEDS: metFORMIN 500 MG Tab PO SCH (07:26)
[2021-04-08] MEDS: Hydrochlorothiazide 25 MG Tab PO SCH (07:27)
[2021-04-08] MEDS: Vitamin E (dl-alpha-tocopherol acetate) 400 Unit Cap PO SCH (07:27)
[2021-04-08] MEDS: Aspirin 81 MG Tab.EC PO SCH (07:27)
[2021-04-08] MEDS: Cholecalciferol (Vitamin D3) 5,000 UNIT Tab PO SCH (07:27)
[2021-04-08] MEDS ORDERED: Bisacodyl 5 MG Tab PO SCH (08:00)
[2021-04-08 08:11] LABS: CHLORIDE,CL 104 mmol/L (98-107); SODIUM,NA 143 mmol/L (136-145)
--- NOTE | 2021-04-08 08:49 | PCM.DCSUM1 ---
Discharge Summary - Hospital Course HPI Initial Comments: See emergency room note/admission H&P Brief History: See emergency room note/admission H&P Diagnosis: Stroke: No Modified [place] Scale: No Symptoms at All Modified [place] Scale Score: 0 - Discharge Data Discharge Date: 04/08/21 Discharge Disposition: Home, Self-Care 01 Condition: Good - Referral to Home Health Primary Care Physician: PCP None - Discharge Diagnosis/Problem(s) (1) Abdominal pain SNOMED Code(s): 06202246 ICD Code: R10.9 - UNSPECIFIED ABDOMINAL PAIN Status: Acute Priority: High Current Visit: Yes Onset Date: 04/07/21 Problem Details: Excellent results from additional Dulcolax and magnesium sulfate with MiraLAX. Dulcolax will be discontinued however her MiraLAX will be continued on a regular basis with close follow-up by her regular provider. Abdominal pain completely resolved after excellent bowel movements on 04/07. Note history of chronic constipation with borderline stool impaction by exam on admission. High-dose IV Pepcid and IV Protonix were given as GI prophylaxis. No evidence of ileus, obstruction, etc. with no indication for antibiotics at this time in spite of initial lactic acid elevation as below. Symptoms likely secondary to severe constipation/borderline stool impaction. Qualifiers: Abdominal location: generalized Qualified Code(s): R10.84 - Generalized abdominal pain (2) Elevated lactic acid level SNOMED Code(s): 5465847 ICD Code: R79.89 - OTHER SPECIFIED ABNORMAL FINDINGS OF BLOOD CHEMISTRY Status: Acute Priority: High Current Visit: Yes Onset Date: 04/07/21 Problem Details: Lactic acid level normal on 04/08 with discontinuation of IV fluids yesterday afternoon previous serial mild lactic acid elevations with no direct evidence of infection or sepsis, including no leukocytosis, fever, etc. 1 L lactated Ringer's IV bolus given in the emergency room with IV fluids continue thereafter. No evidence of UTI or pneumonia. No blood cultures or antibiotics were indicated as above. (3) Peptic reflux disease SNOMED Code(s): 606373177 ICD Code: K21.9 - GASTRO-ESOPHAGEAL REFLUX DISEASE WITHOUT ESOPHAGITIS Status: Chronic Priority: Medium Current Visit: Yes Problem Details: No evidence of acute GI bleed with high-dose IV Pepcid Ig Protonix given as above. (4) Coronary artery disease SNOMED Code(s): 26173361 ICD Code: I25.10 - ATHSCL HEART DISEASE OF [place] CORONARY ARTERY W/O ANG PCTRS Status: Chronic Priority: High Current Visit: Yes Problem Details: No chest pain or anginal type symptoms. Note previous history of CHF and pacemaker placement with possible persistent inferolateral cardiac ischemia by distant EKGs. Initiate Imdur therapy as cardiac prophylaxis and as additional treatment for her hypertension with elevated blood pressures during this hospitalization. Continue to observe closely by her regular provider. Qualifiers: Coronary Disease-Associated Artery/Lesion type: bypass graft [place] vs. transplanted heart: [place] heart Associated angina: without angina Qualified Code(s): I25.810 - Atherosclerosis of coronary artery bypass graft(s) without angina pectoris (5) COPD (chronic obstructive pulmonary disease) SNOMED Code(s): 48088353 ICD Code: J44.9 - CHRONIC OBSTRUCTIVE PULMONARY DISEASE, UNSPECIFIED Statu s: Chronic Priority: Medium Current Visit: No Onset Date: 05/20/18 Problem Details: COPD by chest x-ray with no current medical therapy required. No recent history of fever or bronchitic type symptoms. Consider PFTs by her regular providers. COVID-19 rapid test was negative with apparent previous history of COVID-19 infection in November 2019. The patient and her family refused COVID-19 immunization. Her daughter became extremely confrontational in the emergency room when she discovered that we did collect a COVID test. The daughter insisted that we flush her naris with saline where we collected the COVID-19 test stating that the test swab was contaminated in her opinion since this was made in [place]. Qualifiers: COPD type: emphysema Emphysema type: panlobular Qualified Code(s): J43.1 - Panlobular emphysema (6) Hypertension SNOMED Code(s): 04298946 ICD Code: I10 - ESSENTIAL (PRIMARY) HYPERTENSION Status: Chronic Priority: Medium Current Visit: No Problem Details: As above. Blood Pressures somewhat elevated in the emergency room with some improvement without medical therapy initially, however persistent elevated blood pressures prior to discharge. Continue to observe closely during this hospitalization and by her regular provider. Qualifiers: Hypertension type: essential hypertension Qualified Code(s): I10 - Essential (primary) hypertension (7) Confusion SNOMED Code(s): 764342701 ICD Code: R41.0 - DISORIENTATION, UNSPECIFIED Status: Chronic Priority: Medium Current Visit: Yes Problem Details: Stable mild organic brain syndrome (8) Hypomagnesemia SNOMED Code(s): 576238863 ICD Code: E83.42 - HYPOMAGNESEMIA Status: Chronic Priority: Medium Current Visit: Yes Problem Details: Oral magnesium oxide supplementation during this hospitalization, with this to be continued at discharge. Initial hypomagnesemia on admission resolved on 04/08 with the above supplementation. Close follow-up by regular provider. (9) Hyperuricemia SNOMED Code(s): 89011631 ICD Code: E79.0 - HYPERURICEMIA W/O SIGNS OF INFLAM ARTHRIT AND TOPHACEOUS DIS Status: Acute Priority: Medium Current Visit: Yes Onset Date: 04/06/21 Problem Details: Newly diagnosed. No gout type symptoms. Her art hritis is otherwise stable. (10) Hypoalbuminemia SNOMED Code(s): 726161188 ICD Code: E88.09 - OTH DISORDERS OF PLASMA-PROTEIN METABOLISM, NEC Status: Chronic Priority: Medium Current Visit: Yes Onset Date: ~05/21/18 Problem Details: Chronic. Observe for now. Note previously recommended high- protein Glucerna supplements twice a day as snacks, which they wish to consider at this time. (11) Diabetes mellitus SNOMED Code(s): 60236554 ICD Code: E11.9 - TYPE 2 DIABETES MELLITUS WITHOUT COMPLICATIONS Status: Chronic Priority: Medium Current Visit: Yes Problem Details: Stable by patient history. Weight loss in moderation is advisable. Continue close follow-up by her regular providers. 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 insulin use: without half-way use Diabetes mellitus complication status: with neurologic complications Diabetes mellitus complication detail: with polyneuropathy Qualified Code(s): E11.42 - Type 2 diabetes mellitus with diabetic polyneuropathy - Patient Summary/Data Operative Procedure(s) Performed: None Complications: None Consults: None Labs Pending at D/C: Urine culture and sensitivity Recommended Follow-up Testing/Procedures: As per discharge instructions Planned Operative Procedure(s) after DC: None Hospital Course: Patient was placed in observation status with abdominal checks with vitals and overall excellent results with aggressive oral Dulcolax, magnesium sulfate, and MiraLAX therapy. Symptoms resolved at time of discharge with no complications during this hospitalization. - Patient Instructions Diet: Full Liquid Diet Diet, Other: Heart healthy, 1500-calorie ADA diverticulosis Fluid Restriction: 2000 mL Activity: As Tolerated Driving: Do Not Drive Showering/Bathing: May Shower Notify Provider of: Fever, Increased Pain, Nausea and/or Vomiting Other/Special Instructions: 1. Followup with your regular provider in 10-14 days as directed with recommended repeat CBC, comprehensive metabolic panel, and magnesium level. Bring these discharge instructions with you to that visit. 2. MiraLAX should be used on a daily basis and held, if diarrhea occurs. Treatment goal is an excellent bowel movement at least every 2 days. 3. Immediately after this visit verify that your cellular telephone's voicemail has been activated and is empty. Also verify that your home telephone's answering machine is operating properly and has space to receive messages. Note that it is sometimes necessary for us to be able to contact you at a later date to discuss your medical care. 4. Please remember that we are ALWAYS here for you and want to answer any questions you may have. Feel free to call the hospital any time and we call you back DEIDRA. 5. Your TSH was somewhat elevated during this hospitalization, indicating inadequate thyroid supplementation. Consider changing from your thyroid [place] supplement to Synthroid/L-thyroxine. This should be discussed with your regular provider at the above follow-up visit with recommended repeat TSH in 4 weeks. Note that low thyroid levels can aggravate constipation, heart disease, mental status, etc. SYMPTOMS TO LOOK OUT FOR: . You have been hospitalized for your stomach or abdominal disease and should look out for the following symptoms after discharge: . 1. Make absolutely certain that you completely understand the reasons you are taking any of your new and/or old medications and/or supplements as discussed with you by the nurse at time of discharge. This includes possible side effects versus interactions between your medications and/or supplements. Don't be afraid to take extra time to ask any questions or express any concerns, because that is what we are here for. It is very important to us that you understand your care. 2. Notify this facility, telephone number [phone], and/or your regular provider DEIDRA if you experience any of the following symptoms: a. Any increased abdominal pain, heartburn, nausea, vomiting, etc., which has changed since sure hospital discharge and is not responding to medications and/or supplements you have been prescribed. b. Any change in bowel habits, including more than 5 watery stools per day, severe constipation with no excellent bowel movements every 2 days after discharge, and/or any change in your normal bowel habits. c. Any sudden onset of change of your stool appearance, including blood, black tarry stools, etc. as discussed at discharge. d. Any persistent fever equal to or greater than 100.5 degrees, which does not respond to recommended doses of Tylenol, ibuprofen, Aleve, or other previously prescribed fever medications. . - Discharge Plan *PRESCRIPTION DRUG MONITORING PROGRAM REVIEWED*: Not Applicable *COPY OF PRESCRIPTION DRUG MONITORING REPORT IN PATIENT RENALDO: Not Applicable Prescriptions/Med Rec: Isosorbide Mononitrate [Imdur] 30 mg PO QPM #30 tab.er Magnesium Oxide 400 mg PO QPM #30 tablet Home Medications: Home Meds Acetaminophen with Codeine [Tylenol with Codeine #3 Tablet] 1 each PO Q12HR PRN 04/11/18 [History] Aspirin [Halfprin] 81 mg PO BID 04/11/18 [History] Garlic 100 mg PO DAILY 04/11/18 [History] hydroCHLOROthiazide [Hydrochlorothiazide] 25 mg PO DAILY 04/11/18 [History] metFORMIN [Glucophage] 2 tab PO BIDMEALS 04/11/18 [History] Multivit with Calcium,Iron,Min [Essential Daily] 1 each PO DAILY 05/20/18 [History] Betamethasone/Clotrimazole [Lotrisone] 1 gm TOP BID PRN 03/18/19 [History] Calcium Carbonate [Tums] 500 mg PO DAILY PRN 03/18/19 [History] Cholecalciferol (Vitamin D3) [Vitamin D3] 1 tab PO DAILY 05/15/19 [History] [place] [[place] Mcguire] 250 mg PO DAILY 05/15/19 [History] Lysine 1 tab PO ACBREAKFAST 05/15/19 [History] Non-Formulary Medication [NF Drug] 50 mg PO BID 05/15/19 [History] Non-Formulary Medication [NF Drug] 250 mg PO BID 05/15/19 [History] Non-Formulary Medication [NF Drug] 400 mg PO DAILY 05/15/19 [History] [place]-3 Fatty Acids/Fish Oil [Cvs Fish Oil 1,200 mg Softgel] 1 cap PO DAILY 05/15/19 [History] Red Yeast Rice 1 tab PO DAILY 05/15/19 [History] Sennosides/Docusate Sodium [Senna-S] 1 tab PO BEDTIME 05/15/19 [History] Soy Isoflavone 1 cap PO BID 05/15/19 [History] Ubidecarenone [Co Q-10] 200 mg PO DAILY 05/15/19 [History] Vitamin E 1 cap PO DAILY 05/15/19 [History] Cyclobenzaprine [Flexeril] 10 mg PO TID PRN #15 tab 10/25/19 [Rx] Thyroid,Pork [[place] Thyroid] 60 mg PO DAILY 01/25/21 [History] Non-Formulary Medication [NF Drug] 1 cap PO BEDTIME 04/07/21 [History] Acetaminophen [Tylenol] 650 mg PO Q4H PRN tablet 04/08/21 [Rx] Isosorbide Mononitrate [Imdur] 30 mg PO QPM #30 tab.er 04/08/21 [Rx] Magnesium Oxide 400 mg PO QPM #30 tablet 04/08/21 [Rx] Oxygen Therapy Mode: Room Air Patient Handouts: Heart-Healthy Eating Plan, Yhim-ow-Yays, Hypothyroidism, Constipation, Adult, Gieu-bz-Beqw Forms: ED Department Discharge Referrals: PCP,None [Primary Care Provider] - - Discharge Summary/Plan Comment DC Time >30 min.: Yes (Coordination of care ) Discharge Summary/Plan Comment: As above. Extensive precautions were given to the patient and her daughter, who are in agreement with the treatment plan. See Patient Instructions for further treatment and plan. - General Info Date of Service: 04/08/21 Admission Dx/Problem (Free Text: 1. Abdominal pain likely secondary to constipation 2. Lactic acid elevation 3. Coronary artery disease Functional Status: Reports: Pain Controlled, Tolerating Diet, Ambulating, Urinating, Incentive Spirometry. Denies: New Symptoms Numeric/FACES Score: 0 - Review of Systems General: Reports: No Symptoms, Other (Patient still sedated this morning from yesterday evening's Restoril). Denies: Fever, Weakness, Fatigue, Malaise, Chills, Night Sweats, Appetite HEENT: Reports: No Symptoms Pulmonary: Reports: No Symptoms. Denies: Shortness of Breath, Pleuritic Chest Pain, Cough Cardiovascular: Reports: Edema (Stable dependent). Denies: Chest Pain, Palpitations, Dyspnea on Exertion, Orthopnea, Lightheadedness Gastrointestinal: Reports: Diarrhea (Secondary to medications given for constipation). Denies: Abdominal Pain, Constipation, Decreased Appetite, Difficulty Swallowing, Hematochezia, Melena, Nausea, Vomiting, Other Genitourinary: Reports: No Symptoms. Denies: Dysuria, Frequency, Burning, Pain, Urgency, Hematuria, Retention, Flank Pain Musculoskeletal: Reports: No Symptoms. Denies: Neck Pain, Shoulder Pain, Arm Pain, Back Pain, Leg Pain Skin: Reports: No Symptoms. Denies: Diaphoresis (Stable borderline) Neurological: Reports: Confusion (Stable mild borderline). Denies: Headache, Weakness Psychiatric: Reports: Confusion (As above). Denies: Depression, Anxiety, Agitation, Cravings, Hallucinations - Patient Data Vitals - Most Recent: Last Vital Signs Temp 36.8 C 04/08/21 07:28 Pulse 80 04/08/21 07:28 Resp 16 04/08/21 07:28 BP 155/72 H 04/08/21 07:36 Pulse Ox 93 L 04/08/21 07:28 Vital Signs - 24 hr 04/07/21 04/07/21 04/07/21 13:00 16:00 20:00 Temperature [ 36.4 C 36.7 C 36.6 C Temporal] Pulse, 88 86 72 Peripheral [ Right Pulse Oximetry] Respiratory 20 18 14 Rate Blood Pressure 142/54 H 155/76 H 140/58 L [Right Upper Arm] O2 Sat by Pulse 97 91 L 96 Oximetry 04/08/21 04/08/21 04/08/21 00:00 07:28 07:36 Temperature [ 36.3 C 36.8 C Temporal] Pulse, 84 80 Peripheral [ Right Pulse Oximetry] Respiratory 14 16 Rate Blood Pressure 182/58 H 181/78 H 155/72 H [Right Upper Arm] O2 Sat by Pulse 96 93 L Oximetry Weight - Most Recent: 64.501 kg I&O - Last 24 hours: Intake & Output 04/07/21 04/08/21 04/08/21 22:59 06:59 14:59 Intake Total 840 Balance 840 Imaging Impressions - Last 24 hrs: Acute abdominal x-ray on 04/07/2021 shows evidence moderate diffuse stool with no significant gaseous distention, free air, ileus, obstruction, etc. Moderate scoliosis with additional osteoarthritic and osteoporotic changes. Mild to moderate cardiomegaly with mild prominence of the proximal aortic arch with mild aortic valve calcification but no evidence of CHF, pulmonary infiltrates, pneumothorax, etc. Moderate pulmonary obstructive disease noted. Note status post medial sternotomy and pacemaker placement. Lab Results - Last 24 hrs: Laboratory Results - last 24 hr 04/08/21 04/08/21 04/08/21 Range/Units 07:13 07:13 07:13 WBC 8.3 (4.0-10.2) K/uL RBC 4.20 (3.77-5.09) M/uL Hgb 11.7 (11.7-15.5) g/dL Hct 37.5 (34.0-46.0) % MCV 89.3 (84.0-98.0) fL MCH 27.9 L (28.2-33.3) pg MCHC 31.2 L (31.7-36.0) g/dL RDW 14.0 (11.2-14.1) % Plt Count 246 (150-350) K/uL Neut % (Auto) 59.9 (45.0-80.0) % Lymph % (Auto) 23.6 (10.0-50.0) % [place] % (Auto) 7.7 (2.0-14.0) % Eos % (Auto) 8.6 H (0.0-5.0) % Baso % (Auto) 0.2 (0.0-2.0) % Neut # (Auto) 4.97 (1.40-7.00) K/uL Lymph # (Auto) 1.96 (0.50-3.50) K/uL [place] # (Auto) 0.64 (0.00-1.00) K/uL Eos # (Auto) 0.71 H (0.00-0.50) K/uL Baso # (Auto) 0.02 (0.00-0.20) K/uL Sodium 143 (136-145) mmol/L Potassium 3.6 (3.5-5.1) mmol/L Chloride 104 (98-107) mmol/L Carbon Dioxide 30.5 (21.0-32.0) mmol/L BUN 12 (7-18) mg/dL Creatinine 0.80 (0.51-1.17) mg/dL Est Cr Clr Drug Dosing 34.91 mL/min Estimated GFR (MDRD) > 60 mL/min Glucose 173 H (70-99) mg/dL Lactic Acid 0.2 L (0.4-2.0) mmol/L Calcium 8.6 (8.5-10.1) mg/dL Magnesium 2.0 (1.8-2.4) mg/dL Total Bilirubin 0.3 (0.2-1.0) mg/dL AST 21 (15-37) U/L ALT 44 (12-78) U/L Alkaline Phosphatase 93 (46-116) IU/L Total Protein 6.2 L (6.4-8.2) g/dL Albumin 3.1 L (3.4-5.0) g/dL Amylase 19 L (25-115) U/L Lipase 46 L (73-393) U/L Laboratory Tests 04/06/21 04/06/21 04/07/21 Range/Units 23:45 23:59 00:03 WBC (4.0-10.2) K/uL RBC (3.77-5.09) M/uL Hgb (11.7-15.5) g/dL Hct (34.0-46.0) % MCV (84.0-98.0) fL MCH (28.2-33.3) pg MCHC (31.7-36.0) g/dL RDW (11.2-14.1) % Plt Count (150-350) K/uL Neut % (Auto) (45.0-80.0) % Lymph % (Auto) (10.0-50.0) % [place] % (Auto) (2.0-14.0) % Eos % (Auto) (0.0-5.0) % Baso % (Auto) (0.0-2.0) % Neut # (Auto) (1.40-7.00) K/uL Lymph # (Auto) (0.50-3.50) K/uL [place] # (Auto) (0.00-1.00) K/uL Eos # (Auto) (0.00-0.50) K/uL Baso # (Auto) (0.00-0.20) K/uL PT (9.5-12.0) SEC INR APTT (24.5-32.8) SEC Sodium (136-145) mmol/L Potassium (3.5-5.1) mmol/L Chloride (98-107) mmol/L Carbon Dioxide (21.0-32.0) mmol/L BUN (7-18) mg/dL Creatinine (0.51-1.17) mg/dL Est Cr Clr Drug Dosing Estimated GFR (MDRD) mL/min Glucose (70-99) mg/dL Lactic Acid (0.4-2.0) mmol/L Uric Acid (2.6-7.2) mg/dL Calcium (8.5-10.1) mg/dL Magnesium (1.8-2.4) mg/dL Total Bilirubin (0.2-1.0) mg/dL AST (15-37) U/L ALT (12-78) U/L Alkaline Phosphatase (46-116) IU/L Total Protein (6.4-8.2) g/dL Albumin (3.4-5.0) g/dL Amylase 30 (25-115) U/L Lipase (73-393) U/L TSH, Ultra Sensitive (0.358-3.740) mIU/mL Specimen Type [place] Urine Color Yellow Urine Appearance Clear Urine pH 5.5 (5.0-9.0) Ur Specific [place] 1.025 (1.005-1.030) Urine Protein Negative (NEGATIVE) mg/dL Urine Glucose (UA) Negative (NEGATIVE) mg/dL Urine Ketones Negative (NEGATIVE) mg/dL Urine Occult Blood Trace-intact H (NEGATIVE) Urine Nitrite Negative (NEGATIVE) Urine Bilirubin Negative (NEGATIVE) Urine Urobilinogen 0.2 (0.2-1.0) E.U./dL Ur Leukocyte Esterase Negative (NEGATIVE) U Hyaline Cast (Auto) Few Urine RBC 0-5 /HPF Urine WBC 0-5 /HPF Ur Epithelial Cells Few /LPF Amorphous Sediment Few (0/HPF) /HPF Urine Bacteria Rare (NONE TO FEW) /HPF SARS-CoV-2 RNA (NILSA) Negative (NEGATIVE) 04/07/21 04/07/21 04/07/21 Range/Units 00:03 00:03 00:03 WBC 9.2 (4.0-10.2) K/uL RBC 4.56 (3.77-5.09) M/uL Hgb 12.8 (11.7-15.5) g/dL Hct 40.1 (34.0-46.0) % MCV 87.9 (84.0-98.0) fL MCH 28.1 L (28.2-33.3) pg MCHC 31.9 (31.7-36.0) g/dL RDW 14.0 (11.2-14.1) % Plt Count 260 D (150-350) K/uL Neut % (Auto) 58.7 (45.0-80.0) % Lymph % (Auto) 23.2 (10.0-50.0) % [place] % (Auto) 9.0 (2.0-14.0) % Eos % (Auto) 8.8 H (0.0-5.0) % Baso % (Auto) 0.3 (0.0-2.0) % Neut # (Auto) 5.38 (1.40-7.00) K/uL Lymph # (Auto) 2.13 (0.50-3.50) K/uL [place] # (Auto) 0.83 (0.00-1.00) K/uL Eos # (Auto) 0.81 H (0.00-0.50) K/uL Baso # (Auto) 0.03 (0.00-0.20) K/uL PT 10.1 (9.5-12.0) SEC INR 1.0 APTT 22.0 L (24.5-32.8) SEC Sodium 141 (136-145) mmol/L Potassium 3.5 (3.5-5.1) mmol/L Chloride 101 (98-107) mmol/L Carbon Dioxide 28.6 (21.0-32.0) mmol/L BUN 18 (7-18) mg/dL Creatinine 0.86 (0.51-1.17) mg/dL Est Cr Clr Drug Dosing TNP Estimated GFR (MDRD) > 60 mL/min Glucose 191 H (70-99) mg/dL Lactic Acid (0.4-2.0) mmol/L Uric Acid 9.5 H (2.6-7.2) mg/dL Calcium 9.8 (8.5-10.1) mg/dL Magnesium 1.7 L (1.8-2.4) mg/dL Total Bilirubin 0.3 (0.2-1.0) mg/dL AST 26 (15-37) U/L ALT 53 (12-78) U/L Alkaline Phosphatase 112 (46-116) IU/L Total Protein 7.5 (6.4-8.2) g/dL Albumin 3.9 (3.4-5.0) g/dL Amylase (25-115) U/L Lipase 44 L (73-393) U/L TSH, Ultra Sensitive (0.358-3.740) mIU/mL Specimen Type Urine Color Urine Appearance Urine pH (5.0-9.0) Ur Specific [place] (1.005-1.030) Urine Protein (NEGATIVE) mg/dL Urine Glucose (UA) (NEGATIVE) mg/dL Urine Ketones (NEGATIVE) mg/dL Urine Occult Blood (NEGATIVE) Urine Nitrite (NEGATIVE) Urine Bilirubin (NEGATIVE) Urine Urobilinogen (0.2-1.0) E.U./dL Ur Leukocyte Esterase (NEGATIVE) U Hyaline Cast (Auto) Urine RBC /HPF Urine WBC /HPF Ur Epithelial Cells /LPF Amorphous Sediment (0/HPF) /HPF Urine Bacteria (NONE TO FEW) /HPF SARS-CoV-2 RNA (NILSA) (NEGATIVE) 04/07/21 04/07/21 04/07/21 Range/Units 00:03 07:19 07:19 WBC (4.0-10.2) K/uL RBC (3.77-5.09) M/uL Hgb (11.7-15.5) g/dL Hct (34.0-46.0) % MCV (84.0-98.0) fL MCH (28.2-33.3) pg MCHC (31.7-36.0) g/dL RDW (11.2-14.1) % Plt Count (150-350) K/uL Neut % (Auto) (45.0-80.0) % Lymph % (Auto) (10.0-50.0) % [place] % (Auto) (2.0-14.0) % Eos % (Auto) (0.0-5.0) % Baso % (Auto) (0.0-2.0) % Neut # (Auto) (1.40-7.00) K/uL Lymph # (Auto) (0.50-3.50) K/uL [place] # (Auto) (0.00-1.00) K/uL Eos # (Auto) (0.00-0.50) K/uL Baso # (Auto) (0.00-0.20) K/uL PT (9.5-12.0) SEC INR APTT (24.5-32.8) SEC Sodium (136-145) mmol/L Potassium (3.5-5.1) mmol/L Chloride (98-107) mmol/L Carbon Dioxide (21.0-32.0) mmol/L BUN (7-18) mg/dL Creatinine (0.51-1.17) mg/dL Est Cr Clr Drug Dosing Estimated GFR (MDRD) mL/min Glucose (70-99) mg/dL Lactic Acid 2.7 H 2.5 H (0.4-2.0) mmol/L Uric Acid (2.6-7.2) mg/dL Calcium (8.5-10.1) mg/dL Magnesium (1.8-2.4) mg/dL Total Bilirubin (0.2-1.0) mg/dL AST (15-37) U/L ALT (12-78) U/L Alkaline Phosphatase (46-116) IU/L Total Protein (6.4-8.2) g/dL Albumin (3.4-5.0) g/dL Amylase (25-115) U/L Lipase (73-393) U/L TSH, Ultra Sensitive 5.357 H (0.358-3.740) mIU/mL Specimen Type Urine Color Urine Appearance Urine pH (5.0-9.0) Ur Specific [place] (1.005-1.030) Urine Protein (NEGATIVE) mg/dL Urine Glucose (UA) (NEGATIVE) mg/dL Urine Ketones (NEGATIVE) mg/dL Urine Occult Blood (NEGATIVE) Urine Nitrite (NEGATIVE) Urine Bilirubin (NEGATIVE) Urine Urobilinogen (0.2-1.0) E.U./dL Ur Leukocyte Esterase (NEGATIVE) U Hyaline Cast (Auto) Urine RBC /HPF Urine WBC /HPF Ur Epithelial Cells /LPF Amorphous Sediment (0/HPF) /HPF Urine Bacteria (NONE TO FEW) /HPF SARS-CoV-2 RNA (NILSA) (NEGATIVE) 04/08/21 04/08/21 04/08/21 Range/Units 07:13 07:13 07:13 WBC 8.3 (4.0-10.2) K/uL RBC 4.20 (3.77-5.09) M/uL Hgb 11.7 (11.7-15.5) g/dL Hct 37.5 (34.0-46.0) % MCV 89.3 (84.0-98.0) fL MCH 27.9 L (28.2-33.3) pg MCHC 31.2 L (31.7-36.0) g/dL RDW 14.0 (11.2-14.1) % Plt Count 246 (150-350) K/uL Neut % (Auto) 59.9 (45.0-80.0) % Lymph % (Auto) 23.6 (10.0-50.0) % [place] % (Auto) 7.7 (2.0-14.0) % Eos % (Auto) 8.6 H (0.0-5.0) % Baso % (Auto) 0.2 (0.0-2.0) % Neut # (Auto) 4.97 (1.40-7.00) K/uL Lymph # (Auto) 1.96 (0.50-3.50) K/uL [place] # (Auto) 0.64 (0.00-1.00) K/uL Eos # (Auto) 0.71 H (0.00-0.50) K/uL Baso # (Auto) 0.02 (0.00-0.20) K/uL PT (9.5-12.0) SEC INR APTT (24.5-32.8) SEC Sodium 143 (136-145) mmol/L Potassium 3.6 (3.5-5.1) mmol/L Chloride 104 (98-107) mmol/L Carbon Dioxide 30.5 (21.0-32.0) mmol/L BUN 12 (7-18) mg/dL Creatinine 0.80 (0.51-1.17) mg/dL Est Cr Clr Drug Dosing 34.91 Estimated GFR (MDRD) > 60 mL/min Glucose 173 H (70-99) mg/dL Lactic Acid 0.2 L (0.4-2.0) mmol/L Uric Acid (2.6-7.2) mg/dL Calcium 8.6 (8.5-10.1) mg/dL Magnesium 2.0 (1.8-2.4) mg/dL Total Bilirubin 0.3 (0.2-1.0) mg/dL AST 21 (15-37) U/L ALT 44 (12-78) U/L Alkaline Phosphatase 93 (46-116) IU/L Total Protein 6.2 L (6.4-8.2) g/dL Albumin 3.1 L (3.4-5.0) g/dL Amylase 19 L (25-115) U/L Lipase 46 L (73-393) U/L TSH, Ultra Sensitive (0.358-3.740) mIU/mL Specimen Type Urine Color Urine Appearance Urine pH (5.0-9.0) Ur Specific [place] (1.005-1.030) Urine Protein (NEGATIVE) mg/dL Urine Glucose (UA) (NEGATIVE) mg/dL Urine Ketones (NEGATIVE) mg/dL Urine Occult Blood (NEGATIVE) Urine Nitrite (NEGATIVE) Urine Bilirubin (NEGATIVE) Urine Urobilinogen (0.2-1.0) E.U./dL Ur Leukocyte Esterase (NEGATIVE) U Hyaline Cast (Auto) Urine RBC /HPF Urine WBC /HPF Ur Epithelial Cells /LPF Amorphous Sediment (0/HPF) /HPF Urine Bacteria (NONE TO FEW) /HPF SARS-CoV-2 RNA (NILSA) (NEGATIVE) Urine specimen for culture and sensitivity is pending. LIZZIE Results - Last 24 hrs: None Med Orders - Current: Current Medications Acetaminophen (Acetaminophen 325 Mg Tab) 650 mg PO Q4H PRN PRN Reason: Pain Aspirin (Aspirin 81 Mg Tab.Ec) 81 mg PO BID [facility] Last Admin: 04/08/21 07:27 Dose: 81 mg Documented by: Bisacodyl (Bisacodyl 5 Mg Tab) 5 mg PO DAILY [facility] Last Admin: 04/08/21 07:27 Dose: Not Given Documented by: Cholecalciferol (Cholecalciferol (Vitamin D3) 5,000 Unit Tab) 5,000 unit PO DAILY [facility] Last Admin: 04/08/21 07:27 Dose: 5,000 unit Documented by: Coenzyme Q10 (Ubidecarenone 100 Mg Cap) 200 mg PO DAILY [facility] Last Admin: 04/08/21 07:27 Dose: 200 mg Documented by: Cyclobenzaprine HCl (Cyclobenzaprine 10 Mg Tab) 10 mg PO TID PRN PRN Reason: Spasms Last Admin: 04/07/21 08:17 Dose: 10 mg Documented by: Famotidine (Famotidine 20 Mg/2 Ml Sdv) 20 mg IVPUSH Q24H [facility] Last Admin: 04/08/21 00:44 Dose: 20 mg Documented by: Hydrochlorothiazide (Hydrochlorothiazide 25 Mg Tab) 25 mg PO DAILY [facility] Last Admin: 04/08/21 07:27 Dose: 25 mg Documented by: Magnesium Oxide (Magnesium Oxide 400 Mg Tab) 400 mg PO QPM [facility] Last Admin: 04/07/21 17:37 Dose: 400 mg Documented by: Metformin HCl (Metformin 500 Mg Tab) 1,000 mg PO BIDMEALS [facility] Last Admin: 04/08/21 07:26 Dose: 1,000 mg Documented by: Ondansetron HCl (Ondansetron 4 Mg/2 Ml Sdv) 4 mg IVPUSH Q6H PRN PRN Reason: Nausea/Vomiting Pantoprazole Sodium (Pantoprazole 40 Mg Vial) 40 mg IVPUSH Q12H [facility] Last Admin: 04/08/21 00:44 Dose: 40 mg Documented by: Senna/Docusate Sodium (Docusate Sodium/Sennosides 50-8.6 Mg Tab) 1 tab PO BEDTIME [facility] Last Admin: 04/07/21 21:55 Dose: Not Given Documented by: Sodium Chloride (Sodium Chloride 0.9% 10 Ml Syringe) 10 ml FLUSH ASDIRECTED PRN PRN Reason: Keep Vein Open Last Admin: 04/07/21 11:44 Dose: 10 ml Documented by: Sodium Chloride (Sodium Chloride 0.9% 10 Ml Syringe) 10 ml FLUSH Q12HR [facility] Last Admin: 04/08/21 07:42 Dose: Not Given Documented by: Temazepam (Temazepam 15 Mg Cap) 15 mg PO DAILY@2000 PRN PRN Reason: Insomnia Last Admin: 04/07/21 21:33 Dose: 15 mg Documented by: Thyroid (Thyroid 30 Mg Tab) 60 mg PO DAILY [facility] Last Admin: 04/08/21 07:27 Dose: 60 mg Documented by: Vitamin E (Vitamin E (Fv-Yynrc-Rigyabwnjp Acetate) 400 Unit Cap) 400 units PO DAILY [facility] Last Admin: 04/08/21 07:27 Dose: 400 units Documented by: Discontinued Medications Bisacodyl (Bisacodyl 5 Mg Tab) 10 mg PO ONETIME ONE Stop: 04/07/21 09:09 Last Admin: 04/07/21 09:21 Dose: 10 mg Documented by: Famotidine (Famotidine 20 Mg/2 Ml Sdv) 40 mg IVPUSH ONETIME ONE Stop: 04/06/21 23:37 Last Admin: 04/07/21 00:05 Dose: 40 mg Documented by: Lactated Ringer's (Ringers, Lactated) 1,000 mls @ 999 mls/hr IV .BOLUS ONE Stop: 04/07/21 01:33 Last Admin: 04/07/21 01:07 Dose: 999 mls/hr Documented by: Lactated Ringer's (Ringers, Lactated) 1,000 mls @ 100 mls/hr IV ASDIRECTED [facility] Last Admin: 04/07/21 02:45 Dose: 100 mls/hr Documented by: Magnesium Citrate (Magnesium Citrate Solution 296 Ml Bottle) 0 ml PO ONETIME ONE Stop: 04/07/21 01:32 Last Admin: 04/07/21 02:44 Dose: 296 ml Documented by: Non-Formulary Medication (Non-Formulary Medication 1 Each) each PO BID [facility] Ondansetron HCl (Ondansetron 4 Mg/2 Ml Sdv) 4 mg IVPUSH ONETIME ONE Stop: 04/06/21 23:37 Last Admin: 04/07/21 00:04 Dose: 4 mg Documented by: Pantoprazole Sodium (Pantoprazole 40 Mg Vial) 40 mg IVPUSH ONETIME ONE Stop: 04/06/21 23:37 Last Admin: 04/07/21 00:04 Dose: 40 mg Documented by: Polyethylene Glycol (Polyethylene Glycol 3350 Powder 17 Gm Packet) 17 gm PO ONETIME ONE Stop: 04/07/21 01:32 Last Admin: 04/07/21 02:32 Dose: Not Given Documented by: Sodium Chloride (Sodium Chloride 0.65% Nasal [place] 45 Ml Bottle) 1 ml RADHA ONETIME ONE Stop: 04/07/21 00:55 Last Admin: 04/07/21 01:07 Dose: 1 ml Documented by: - Exam Quality Assessment: Reports: Supplemental Oxygen, DVT Prophylaxis. Denies: Central Line/PICC, Urine Catheter, Skin Breakdown, Restraints General: Reports: Oriented, Other (Mild persistent sedation this morning secondary to her Restoril yesterday) HEENT: Reports: Pupils Equal, Pupils Reactive, EOMI, Mucous Membr. Moist/[place]ck: Reports: Supple, Trachea Midline, No JVD, No Thyromegaly, Carotid Bruit (Stable mild bilateral carotid bruits) Lungs: Reports: Clear to Auscultation, Normal Respiratory Effort Cardiovascular: Reports: Regular Rate, Regular Rhythm, No Murmurs. Denies: Gallops, Rubs GI/Abdominal Exam: Normal Bowel Sounds, Soft, Non-Tender, No Organomegaly, No Distention, No Abnormal Bruit, No Mass, Pelvis Stable, Other (Obese). No: Guarding (Female) Exam: Deferred Rectal (Female) Exam: Deferred Back Exam: Reports: Normal Inspection, Full Range of Motion. Denies: CVA Tenderness (L), CVA Tenderness (R), Muscle Spasm Extremities: Pedal Edema (Stable mild trace bilateral pedal/pretibial edema). No: Luisito's Sign Skin: Reports: Warm, Dry, Intact. Denies: Ecchymosis Neurological: Reports: No New Focal Deficit Psy/Mental Status: Reports: Alert, Normal Affect, Normal Mood. Denies: Agitated, Hallucinations, Withdrawal Symptoms
== END 2021-04-08 14:25 | disposition home or self-care (01) ==
LOC: LL.ED 23:20 → LL.MS 04-07 00:55
PROVIDERS: ADMIT Family Medicine; ATTEND Family Medicine
DX: R10.84 Generalized abdominal pain (principal); I25.10 Atherosclerotic heart disease of native coronary artery without angina pectoris; I11.0 Hypertensive heart disease with heart failure; I50.9 Heart failure, unspecified; E78.00 Pure hypercholesterolemia, unspecified; I25.2 Old myocardial infarction; Z95.0 Presence of cardiac pacemaker; J44.9 Chronic obstructive pulmonary disease, unspecified; E11.40 Type 2 diabetes mellitus with diabetic neuropathy, unspecified; E03.9 Hypothyroidism, unspecified; E66.9 Obesity, unspecified; Z20.822 Contact with and (suspected) exposure to COVID-19; R79.89 Other specified abnormal findings of blood chemistry; R41.0 Disorientation, unspecified; E83.42 Hypomagnesemia; E79.0 Hyperuricemia without signs of inflammatory arthritis and tophaceous disease; Z88.8 Allergy status to other drugs, medicaments and biological substances; Z79.899 Other long term (current) drug therapy; Z79.82 Long term (current) use of aspirin; Z98.890 Other specified postprocedural states; Z79.84 Long term (current) use of oral hypoglycemic drugs; Z68.27 Body mass index [BMI] 27.0-27.9, adult
CPT/HCPCS: 36415; 74022; 80053; 81001; 82150; 82272; 83605; 83690; 83735; 84443; 84550; 85025; 85610; 85730; 87086; 96374; 96375; 96376; 99217; 99220; 99285-25; A9270-GY; C9113; G0378; J2405; J3490; J7120; U0002

== ENCOUNTER 2021-05-16 14:13 | Emergency (ER) | payer MEDICARE, OTHER ==
[2021-05-16 14:58] LABS: CHLORIDE,CL 100 mmol/L (98-107); SODIUM,NA 143 mmol/L (136-145)
[2021-05-16] MEDS: Acetaminophen/HYDROcodone 325-10 MG Tab PO ONE (15:12)
[2021-05-16] MEDS: Cephalexin 250 MG Cap PO ONE (16:08)
[2021-05-16] MEDS: Colchicine 0.6 MG Tab PO ONE ×2 (16:08)
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
== END 2021-05-16 16:45 | disposition home or self-care (01) ==
LOC: LL.ED 14:13
DX: M10.9 Gout, unspecified (principal); L03.116 Cellulitis of left lower limb; I25.10 Atherosclerotic heart disease of native coronary artery without angina pectoris; E78.00 Pure hypercholesterolemia, unspecified; I11.0 Hypertensive heart disease with heart failure; I50.9 Heart failure, unspecified; I25.2 Old myocardial infarction; J44.9 Chronic obstructive pulmonary disease, unspecified; M19.90 Unspecified osteoarthritis, unspecified site; G30.9 Alzheimer's disease, unspecified; F02.80 Dementia in other diseases classified elsewhere, unspecified severity, without behavioral disturbance, psychotic disturbance, mood disturbance, and anxiety; E11.42 Type 2 diabetes mellitus with diabetic polyneuropathy; E03.9 Hypothyroidism, unspecified; E66.9 Obesity, unspecified; Z95.5 Presence of coronary angioplasty implant and graft; Z95.1 Presence of aortocoronary bypass graft; Z88.6 Allergy status to analgesic agent; Z88.8 Allergy status to other drugs, medicaments and biological substances; Z79.82 Long term (current) use of aspirin; Z79.84 Long term (current) use of oral hypoglycemic drugs; Z79.899 Other long term (current) drug therapy
CPT/HCPCS: 36415; 73630-LT; 80053; 84550; 85025; 86140; 99284; 99284-25; A9270-GY

== ENCOUNTER 2021-07-11 09:11 | Emergency (ER) | payer MEDICARE, OTHER ==
[2021-07-11] MEDS ORDERED: predniSONE 20 MG Tab PO ONE (09:17)
[2021-07-11] MEDS ORDERED: Colchicine 0.6 MG Tab PO ONE ×2 (09:40→11:00)
[2021-07-11 09:53] LABS: CHLORIDE,CL 101 mmol/L (98-107); SODIUM,NA 137 mmol/L (136-145)
[2021-07-11 09:55] LABS: ANION GAP 8.1 meq/L (7-15)
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
== END 2021-07-11 18:15 | disposition home or self-care (01) ==
LOC: LL.ED 09:11
DX: M10.9 Gout, unspecified (principal); I25.10 Atherosclerotic heart disease of native coronary artery without angina pectoris; E78.00 Pure hypercholesterolemia, unspecified; I11.0 Hypertensive heart disease with heart failure; I50.9 Heart failure, unspecified; I25.2 Old myocardial infarction; J44.9 Chronic obstructive pulmonary disease, unspecified; E11.42 Type 2 diabetes mellitus with diabetic polyneuropathy; E03.9 Hypothyroidism, unspecified; Z95.0 Presence of cardiac pacemaker; Z87.891 Personal history of nicotine dependence; Z88.5 Allergy status to narcotic agent; Z88.8 Allergy status to other drugs, medicaments and biological substances; Z88.6 Allergy status to analgesic agent; Z79.82 Long term (current) use of aspirin; Z79.899 Other long term (current) drug therapy; Z79.84 Long term (current) use of oral hypoglycemic drugs; Z95.1 Presence of aortocoronary bypass graft
CPT/HCPCS: 36415; 73610; 80053; 84550; 85025; 85652; 86140; 99284; A9270; J7512; 99283

== ENCOUNTER 2021-08-24 12:16 | Inpatient (IN) | payer MEDICARE, OTHER ==
[2021-08-24] MEDS ORDERED: Sodium Chloride 0.9% 500 ML IV SCH (13:00)
--- NOTE | 2021-08-24 13:44 | EDM.PDOC ---
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 (4) Elevated lactic acid level SNOMED Code(s): 3869895 Code(s): R79.89 - OTHER SPECIFIED ABNORMAL FINDINGS OF BLOOD CHEMISTRY Status: Acute Priority: High Current Visit: No Onset Date: 04/07/21 Annotation/Comment:: No evidence of sepsis/acute infection at this time. Continue to trend as glucose levels come downward. (5) Hypertension SNOMED Code(s): 30695467 Code(s): I10 - ESSENTIAL (PRIMARY) HYPERTENSION Status: Chronic Priority: Medium Current Visit: Yes Annotation/Comment:: Patient is taking HCTZ but does not appear to be on any other antihypertensive agents. Systolic readings trending high. Will follow BP trends and initiate antihypertensive therapy if patient and family agreeable with plan. Qualifiers: Hypertension type: essential hypertension (6) Peptic reflux disease SNOMED Code(s): 676591381 Code(s): K21.9 - GASTRO-ESOPHAGEAL REFLUX DISEASE WITHOUT ESOPHAGITIS Status: Chronic Priority: Low Current Visit: No Annotation/Comment:: No complaints per patient at this point in time/continue home medication (7) CHF (congestive heart failure) SNOMED Code(s): 10381496 Code(s): I50.9 - HEART FAILURE, UNSPECIFIED Status: Chronic Priority: High Current Visit: No Onset Date: 05/20/18 Annotation/Comment:: No record of cardiac echo found in EMR/chart. Hx of stents/CABG. No complaints of increased edema/sob. Continue current home medication. Patient is DNR/DNI/Comfort care and at this time does not want to consider updated cardiac echo Qualifiers: Heart failure type: unspecified Heart failure chronicity: chronic Qualified Code(s): I50.9 - Heart failure, unspecified (8) Coronary artery disease SNOMED Code(s): 47677930 Code(s): I25.10 - ATHSCL HEART DISEASE OF [place] CORONARY ARTERY W/O ANG PCTRS Status: Chronic Priority: High Current Visit: No Annotat ion/Comment:: No chest pain or anginal type symptoms. Has history of CABG/stents/pacemaker. Comfort care status Qualifiers: Coronary Disease-Associated Artery/Lesion type: bypass graft [place] vs. transplanted heart: [place] heart Associated angina: without angina Qualified Code(s): I25.810 - Atherosclerosis of coronary artery bypass graft(s) without angina pectoris (9) Osteoarthritis SNOMED Code(s): 679999979 Code(s): M19.90 - UNSPECIFIED OSTEOARTHRITIS, UNSPECIFIED SITE Status: Chronic Priority: Medium Current Visit: No Annotation/Comment:: Stable chronic low back pain with chronic narcotic therapy. She does wear a back brace. Continue home meds Qualifiers: Osteoarthritis location: multiple joints Osteoarthritis type: primary Qualified Code(s): M89.49 - Other hypertrophic osteoarthropathy, multiple sites (10) Hypokalemia SNOMED Code(s): 00277572 Code(s): E87.6 - HYPOKALEMIA Status: Acute Priority: Medium Current Visit: Yes Annotation/Comment:: Mild. K of 3.4. Initiate replacement. Recheck level in AM. (11) Elevated serum creatinine SNOMED Code(s): 295756026 Code(s): R79.89 - OTHER SPECIFIED ABNORMAL FINDINGS OF BLOOD CHEMISTRY Status: Acute Priority: Medium Current Visit: Yes Annotation/Comment:: Per chart review patient usually is within normal limits. Elevated to 1.41 tonight with BUN 24. Suspect dehydration. Will give fluids overnight and recheck level in AM. - Problem List Review Problem List Initiated/Reviewed/Updated: Yes - My Orders Last 24 Hours: My Active Orders 08/24/21 13:00 Sodium Chloride 0.9% [Normal Saline] 500 ml IV .BOLUS 08/24/21 13:44 Accu Check [Blood Glucose Check, Bedside] [RC] ONETIME 08/24/21 13:51 Dextrose 50% in Water 50 ml IVPUSH ASDIRECTED PRN Glucagon,Human Recombinant [GlucaGen] 1 mg IM ASDIRECTED PRN 08/24/21 14:00 Insulin Regular, Human [HumuLIN R] 100 unit Sodium Chloride 0.9% [Normal Saline] 99 ml IV TITRATE 08/24/21 14:18 Chest 1V Frontal [CR] Routine - Assessment/Plan Admission H&P: Please use this note as an admission H&P Last 24 Hours: My Active Orders 08/24/21 13:00 Sodium Chloride 0.9% [Normal Saline] 500 ml IV .BOLUS 08/24/21 13:44 Accu Check [Blood Glucose Check, Bedside] [RC] ONETIME 08/24/21 13:51 Dextrose 50% in Water 50 ml IVPUSH ASDIRECTED PRN Glucagon,Human Recombinant [GlucaGen] 1 mg IM ASDIRECTED PRN 08/24/21 14:00 Insulin Regular, Human [HumuLIN R] 100 unit Sodium Chloride 0.9% [Normal Saline] 99 ml IV TITRATE 08/24/21 14:18 Chest 1V Frontal [CR] Routine as above. Plan: IV Insulin drip. Patient responding well and in 500s. Recheck lactic this evening. Recheck CBC/Chem/lactic/K in AM. If no additional concerns identified and patient normalizes blood sugar overnight, anticipate that she will likely be able to be discharged home tomorrow or the following day. Patient and family do not want to start an insulin regimen. They are interested in palliative care and they will be consulted. Also will consult pc tech as outpatient to review best diet goals for patient's type 2 DM. A1c is over 11, reflecting very poor control.
[2021-08-24] MEDS ORDERED: Insulin Regular, Human 100 Units/ML 3 ML Vial SUBCUT ONE (13:51)
[2021-08-24] MEDS ORDERED: Glucagon,Human Recombinant 1 MG Vial IM PRN ×2 (13:51→17:03)
[2021-08-24] MEDS ORDERED: 50% Dextrose in Water 50 ML Syringe IVPUSH PRN ×2 (13:51→17:03)
[2021-08-24 14:09] LABS: ANION GAP 17.6 meq/L (7-15)
[2021-08-24] MEDS ORDERED: Insulin Regular, Human 100 Units/ML 3 ML Vial ONE (14:15)
[2021-08-24 14:58] LABS: HEMOGLOBIN A1C 11.2 % (4.3-5.7)
[2021-08-24 15:01] LABS: PCO2 ARTERIAL,POC 40 mmHg (35-48)
[2021-08-24] MEDS ORDERED: Sodium Chloride 0.9% 1,000 ML IV ONE (16:57)
[2021-08-24] MEDS ORDERED: Potassium Chloride 10 MEQ Tab.ER PO ONE ×2 (16:58→20:00)
[2021-08-24] MEDS ORDERED: Acetaminophen/Codeine 300-30 MG Tab PO PRN (16:59)
[2021-08-24] MEDS ORDERED: Cyclobenzaprine 10 MG Tab PO PRN (16:59)
[2021-08-24] MEDS ORDERED: Acetaminophen 325 MG Tab PO PRN (16:59)
[2021-08-24] MEDS ORDERED: Calcium Carbonate 500 MG Tab.Chew PO PRN (16:59)
[2021-08-24] MEDS: Insulin Regular, Human 100 Units/ML 3 ML Vial SUBCUT SCH (17:24)
[2021-08-24] MEDS: metFORMIN 500 MG Tab PO SCH (17:40)
[2021-08-24] MEDS: Aspirin 81 MG Tab.EC PO SCH (17:41)
[2021-08-24] MEDS: Allopurinol 100 MG Tab PO SCH (17:41)
--- NOTE | 2021-08-24 17:52 | PCM.SN.2 ---
- Free Text/Narrative Note: Lactic acid significantly improved, now 2.8 Recheck in AM Blood sugar down to 310. Insulin infusion held. Continue regular accuchecks/insulin on sliding scale for now. Time Documentation
[2021-08-25] MEDS ORDERED: Levothyroxine 100 MCG Tab PO SCH (07:30)
[2021-08-25] MEDS: Allopurinol 100 MG Tab PO SCH (07:54)
[2021-08-25] MEDS: metFORMIN 500 MG Tab PO SCH ×2 (07:54→17:45)
[2021-08-25] MEDS: Aspirin 81 MG Tab.EC PO SCH (07:55)
[2021-08-25] MEDS: Insulin Regular, Human 100 Units/ML 3 ML Vial SUBCUT SCH ×2 (07:56→17:45)
[2021-08-25] MEDS ORDERED: Hydrochlorothiazide 25 MG Tab PO SCH (08:00)
[2021-08-25] MEDS ORDERED: Escitalopram 20 MG Tab PO SCH (08:00)
[2021-08-25] MEDS ORDERED: Potassium Chloride 10 MEQ Tab.ER PO ONE ×4 (10:16→16:00)
[2021-08-25] MEDS ORDERED: NS + KCl 20mEq/L 1,000 ML IV SCH (10:30)
--- NOTE | 2021-08-25 16:13 | PCM.DCSUM1 ---
Discharge Summary - Hospital Course Brief History: Patient admitted for hyperglycemia, increased confusion Diagnosis: Stroke: No - Discharge Data Discharge Date: 08/25/21 Discharge Disposition: Home, Self-Care 01 Condition: Fair - Referral to Home Health Primary Care Physician: Monique Mcelroy NP - Discharge Diagnosis/Problem(s) (1) Poorly controlled type 2 diabetes mellitus with complication SNOMED Code(s): 81677692, 781647793 ICD Code: E11.8 - TYPE 2 DIABETES MELLITUS WITH UNSPECIFIED COMPLICATIONS; E11.65 - TYPE 2 DIABETES MELLITUS WITH HYPERGLYCEMIA Status: Acute Priority: High Current Visit: Yes Problem Details: Hgb A1c 11.2 Blood glucose in ED 720 No obvious associated trigger for elevation such as UTI or other acute infection identified. No ketones in urine or blood. Normal pH ABG. Normal WBC. Lactic elevated at 5.7 but again there is no evidence of sepsis/acute infection in ED. K 3.4 with Cl 97. Anion gap 17.6 Received IV fluid and Insulin drip per protocol. Blood glucose levels improved and drip discontinued later in evening. Blood glucose remained in 200s thereafter. Plan for outpatient dietary consult after discharge home. Patient and family are NOT interested in starting an insulin regimen but are open to referral to paliative care. Home Health referral has been sent and Hospice with consult with patient and family to see if Hospice care might be a better fit. (2) Hypokalemia SNOMED Code(s): 69412766 ICD Code: E87.6 - HYPOKALEMIA Status: Acute Priority: Medium Current Visit: Yes Problem Details: K of 3.4 in ED. Initiated replacement. Rechecked level this morning and down to 2.8. Replacement therapy continued. Recheck at 1500 showed normalized level at 3.8 To continue oral supplementation at home 20meq daily and have level rechecked on Sunday or Sunday of next week. (3) Protein-calorie malnutrition, moderate SNOMED Code(s): 062448778 ICD Code: E44.0 - MODERATE PROTEIN-CALORIE MALNUTRITION Status: Chronic Priority: Medium Current Visit: Yes Problem Details: Previously diagnosed per daughter. Refer to radioisotope production operator as outpatient after discharge. (4) Confusion SNOMED Code(s): 556458381 ICD Code: R41.0 - DISORIENTATION, UNSPECIFIED Status: Chronic Priority: Medium Current Visit: Yes Problem Details: History mild organic brain syndrome. Suspect acute exacerbation noted likely related to hyperglycemia. Improved today (5) Elevated lactic acid level SNOMED Code(s): 5062494 ICD Code: R79.89 - OTHER SPECIFIED ABNORMAL FINDINGS OF BLOOD CHEMISTRY Status: Acute Priority: High Current Visit: No Onset Date: 04/07/21 Problem Details: 5.7 in ED. No evidence of sepsis/acute infection at that time. Significant improvement at 2.8 when checked later in afternoon. Normalized as of this morning at 0.7 (6) Hypertension SNOMED Code(s): 40558754 ICD Code: I10 - ESSENTIAL (PRIMARY) HYPERTENSION Status: Chronic Priority: Medium Current Visit: Yes Problem Details: Patient is taking HCTZ but does not appear to be on any other antihypertensive agents. Systolic readings trended high but were better when BP manually measured. Patient's daughter did not want us to adjust patient's HCTZ as the plan with her regular provider was to let the BP run a bit higher to see if patient would have more energy. No adjustments to home medication made. Qualifiers: Hypertension type: essential hypertension (7) Peptic reflux disease SNOMED Code(s): 543588998 ICD Code: K21.9 - GASTRO-ESOPHAGEAL REFLUX DISEASE WITHOUT ESOPHAGITIS Status: Chronic Priority: Low Current Visit: No Problem Details: No complaints per patient at this point in time/continue home medication (8) CHF (congestive heart failure) SNOMED Code(s): 27260468 ICD Code: I50.9 - HEART FAILURE, UNSPECIFIED Status: Chronic Priority: Low Current Visit: No Onset Date: 05/20/18 Problem Details: No record of cardiac echo found in EMR/chart. Hx of stents/CABG. No complaints of increased edema/sob. Continue current home medication. Patient is DNR/DNI/Comfort care and at this time does not want to consider updated cardiac echo Qualifiers: Heart failure type: unspecified Heart failure chronicity: chronic Qualified Code(s): I50.9 - Heart failure, unspecified (9) Coronary artery disease SNOMED Code(s): 29038027 ICD Code: I25.10 - ATHSCL HEART DISEASE OF [place] CORONARY ARTERY W/O ANG PCTRS Status: Chronic Priority: Low Current Visit: No Problem Details: No chest pain or anginal type symptoms. Has history of CABG/stents/pacemaker. Comfort care status Qualifiers: Coronary Disease-Associated Artery/Lesion type: bypass graft [place] vs. transplanted heart: [place] heart Associated angina: without angina Qualified Code(s): I25.810 - Atherosclerosis of coronary artery bypass graft(s) without angina pectoris (10) Osteoarthritis SNOMED Code(s): 753842487 ICD Code: M19.90 - UNSPECIFIED OSTEOARTHRITIS, UNSPECIFIED SITE Status: Chronic Priority: Medium Current Visit: No Problem Details: Stable chronic low back pain with chronic narcotic therapy. She does wear a back brace. Continue home meds Qualifiers: Osteoarthritis location: multiple joints Osteoarthritis type: primary Qualified Code(s): M89.49 - Other hypertrophic osteoarthropathy, multiple sites (11) Elevated serum creatinine SNOMED Code(s): 081096630 ICD Code: R79.89 - OTHER SPECIFIED ABNORMAL FINDINGS OF BLOOD CHEMISTRY Status: Acute Priority: Medium Current Visit: Yes Problem Details: Per chart review patient usually is within normal limits. Elevated to 1.41 tonight with BUN 24. Suspect dehydration. Fluids given overnight. Normalized at 0.91 this morning. (12) Acute dehydration SNOMED Code(s): 75255841, 48920455 ICD Code: E86.0 - DEHYDRATION Status: Acute Priority: High Current Visit: Yes Problem Details: Associated with hyperglycemia, elevated BUN/Cr as noted above. Improved after IV fluids. - Patient Summary/Data Consults: Consultations 08/24/21 15:21 Consult to Case Management/Radiation Technician [CONS] Routine OT Evaluation and Treatment [CONS] Routine PT Evaluation and Treatment [CONS] Routine Hospital Course: As above. Patient responded well to insulin drip as did elevated lactic acid. Noted to have lower potassium this morning and required more aggressive potassium replacement via oral and IV K. Multiple visits with patient's daughter who is patient's caregiver, patient, and case management. Daughter made it clear that they are not interested in having patient start insulin for treatment of the diabetes. Daughter wished to have patient discharged home today once potassium level normalized Daughter and patient have goals of comfort type care. Patient has been sleeping more and often refusing medications. Daughter did not want any adjustments to hypertension meds or oral diabetic medications started at this time. We discussed with her the possibility that Home Health/Palliative care or even Hospice care might be an option that could be a better fit for their goals. Daughter is wanting a referral to Home Health and is ok with getting a Hospice consult. Given the above and daughter's/patient's wish to be discharged, patient was discharged from acute inpatient status less than 24 hours after admission. Daughter is to continue with single dose of potassium chloride 20meq through weekend and have level rechecked on Sunday or at latest Sunday of next week. Daughter is agreeable with potassium replacement. They should also review the above ongoing concerns with patient's PCP and if any other interventions/med changes might be appropriate. - Patient Instructions Diet: Limited Carb Activity: As Tolerated Other/Special Instructions: Take 20meq Potassium once a day over the weekend. Get the potassium level rechecked Sunday or Sunday to see if it is within good range or high/low. Discuss with your provider if they might want to start Zelta on oral diabetes meds or just have you try to work on things through diet. Adjustment of potassium as needed based on labs next week. If it is discontinued would then recommend a recheck again in one month. We have sent a referral to home health so that Zelta can get extra help. They will help you with figuring out a low carb diabetes diet. Also will refer to dietitian to assist in this area along with the protein malnutrition concerns. There is a consult also to have Hospice visit with you to see if they are a better fit with your assistant terminal manager care goals. Follow up otherwise as needed if there are acute concerns, and continue regular follow up with your primary provider. - Discharge Plan *PRESCRIPTION DRUG MONITORING PROGRAM REVIEWED*: Not Applicable *COPY OF PRESCRIPTION DRUG MONITORING REPORT IN PATIENT RENALDO: Not Applicable Home Medications: Home Meds Acetaminophen with Codeine [Tylenol with Codeine #3 Tablet] 1 each PO Q12HR PRN 04/11/18 [History] Aspirin [Halfprin] 81 mg PO BID 04/11/18 [History] Garlic 100 mg PO DAILY 04/11/18 [History] hydroCHLOROthiazide [Hydrochlorothiazide] 25 mg PO DAILY 04/11/18 [History] metFORMIN [Glucophage] 2 tab PO BIDMEALS 04/11/18 [History] Multivit with Calcium,Iron,Min [Essential Daily] 1 each PO DAILY 05/20/18 [History] Betamethasone/Clotrimazole [Lotrisone] 1 gm TOP BID PRN 03/18/19 [History] Calcium Carbonate [Tums] 500 mg PO DAILY PRN 03/18/19 [History] Cholecalciferol (Vitamin D3) [Vitamin D3] 1 tab PO DAILY 05/15/19 [History] [place] Mcguire [Tony Mcguire] 250 mg PO DAILY 05/15/19 [History] Lysine 1 tab PO ACBREAKFAST 05/15/19 [History] Non-Formulary Medication [NF Drug] 50 mg PO BID 05/15/19 [History] Non-Formulary Medication [NF Drug] 400 mg PO DAILY 05/15/19 [History] [place]-3 Fatty Acids/Fish Oil [Cvs Fish Oil 1,200 mg Softgel] 1 cap PO DAILY 05/05 11/23 [History] Red Yeast Rice 1 tab PO DAILY 05/15/19 [History] Sennosides/Docusate Sodium [Senna-S] 1 tab PO BEDTIME 05/15/19 [History] Soy Isoflavone 1 cap PO BID 05/15/19 [History] Ubidecarenone [Co Q-10] 200 mg PO DAILY 05/15/19 [History] Vitamin E 1 cap PO DAILY 05/15/19 [History] Cyclobenzaprine [Flexeril] 10 mg PO TID PRN #15 tab 10/25/19 [Rx] Non-Formulary Medication [NF Drug] 1 cap PO BEDTIME 04/07/21 [History] Acetaminophen [Tylenol] 650 mg PO Q4H PRN tablet 04/08/21 [Rx] Magnesium Oxide 400 mg PO QPM #30 tablet 04/08/21 [Rx] Allopurinol [Zyloprim] 300 mg PO BID 08/24/21 [History] Escitalopram [Lexapro] 10 mg PO DAILY 08/24/21 [History] Fluticasone Propionate [Flonase] 1 - 2 sprays INH DAILY PRN 08/24/21 [History] Levothyroxine [Synthroid] 100 mcg PO ACBREAKFAST 08/24/21 [History] Forms: ED Department Discharge Referrals: Monique Mcelroy NP [Primary Care Provider] - - Discharge Summary/Plan Comment DC Time >30 min.: No Total # of Minutes for Discharge Time: 30 - General Info Date of Service: 08/25/21 Admission Dx/Problem (Free Text: Admitted for hyperglycemia, dehydration, acute increase confusion Subjective Update: Patient sleeping prior to visit. Very happy, smiling, says she feels just fine. Functional Status: Reports: Pain Controlled, Tolerating Diet, Ambulating (with assistance. ), Urinating. Denies: New Symptoms - Review of Systems General: Reports: Weakness (chronic/long standing). Denies: Fever, Malaise, Chills, Night Sweats HEENT: Denies: Ear Pain, Eye Pain, Headaches, Sinus Congestion, Sore Throat, Rhinitis, Visual Changes Pulmonary: Reports: No Symptoms Cardiovascular: Reports: No Symptoms Gastrointestinal: Reports: No Symptoms Genitourinary: Reports: No Symptoms Musculoskeletal: Reports: Other (no acute changes from baseline) Skin: Reports: No Symptoms Neurological: Reports: Confusion (chronic mild confusion), Difficulty Walking (needs assistance), Weakness (chronic/unchanged) Psychiatric: Reports: Confusion - Patient Data Vitals - Most Recent: Last Vital Signs Temp 37.1 C 08/25/21 12:00 Pulse 70 08/25/21 12:00 Resp 16 08/25/21 12:00 BP 182/77 H 08/25/21 12:00 Pulse Ox 97 08/25/21 12:00 Weight - Most Recent: 63.503 kg I&O - Last 24 hours: Intake & Output 08/25/21 08/25/21 08/25/21 06:59 14:59 22:59 Intake Total 1261 229 Balance 1261 229 Lab Results - Last 24 hrs: Laboratory Results - last 24 hr 08/24/21 08/24/21 08/24/21 Range/Units 13:25 16:50 17:15 WBC (4.0-10.2) K/uL RBC (3.77-5.09) M/uL Hgb (11.7-15.5) g/dL Hct (34.0-46.0) % MCV (84.0-98.0) fL MCH (28.2-33.3) pg MCHC (31.7-36.0) g/dL RDW (11.2-14.1) % Plt Count (150-350) K/uL Neut % (Auto) (45.0-80.0) % Lymph % (Auto) (10.0-50.0) % [place] % (Auto) (2.0-14.0) % Eos % (Auto) (0.0-5.0) % Baso % (Auto) (0.0-2.0) % Neut # (Auto) (1.40-7.00) K/uL Lymph # (Auto) (0.50-3.50) K/uL [place] # (Auto) (0.00-1.00) K/uL Eos # (Auto) (0.00-0.50) K/uL Baso # (Auto) (0.00-0.20) K/uL Sodium (136-145) mmol/L Potassium (3.5-5.1) mmol/L Chloride (98-107) mmol/L Carbon Dioxide (21.0-32.0) mmol/L Anion Gap (7-15) meq/L BUN (7-18) mg/dL Creatinine (0.51-1.17) mg/dL Est Cr Clr Drug Dosing mL/min Estimated GFR (MDRD) mL/min Glucose (70-99) mg/dL POC Glucose 310 H (70-99) mg/dL Lactic Acid 2.8 H (0.4-2.0) mmol/L Calcium (8.5-10.1) mg/dL Total Bilirubin (0.2-1.0) mg/dL AST (15-37) U/L ALT (12-78) U/L Alkaline Phosphatase (46-116) IU/L NT-Pro-B Natriuret Pep 253 H (0-125) pg/mL Total Protein (6.4-8.2) g/dL Albumin (3.4-5.0) g/dL 08/24/21 08/24/21 08/25/21 Range/Units 19:06 21:04 03:02 WBC (4.0-10.2) K/uL RBC (3.77-5.09) M/uL Hgb (11.7-15.5) g/dL Hct (34.0-46.0) % MCV (84.0-98.0) fL MCH (28.2-33.3) pg MCHC (31.7-36.0) g/dL RDW (11.2-14.1) % Plt Count (150-350) K/uL Neut % (Auto) (45.0-80.0) % Lymph % (Auto) (10.0-50.0) % [place] % (Auto) (2.0-14.0) % Eos % (Auto) (0.0-5.0) % Baso % (Auto) (0.0-2.0) % Neut # (Auto) (1.40-7.00) K/uL Lymph # (Auto) (0.50-3.50) K/uL [place] # (Auto) (0.00-1.00) K/uL Eos # (Auto) (0.00-0.50) K/uL Baso # (Auto) (0.00-0.20) K/uL Sodium (136-145) mmol/L Potassium (3.5-5.1) mmol/L Chloride (98-107) mmol/L Carbon Dioxide (21.0-32.0) mmol/L Anion Gap (7-15) meq/L BUN (7-18) mg/dL Creatinine (0.51-1.17) mg/dL Est Cr Clr Drug Dosing mL/min Estimated GFR (MDRD) mL/min Glucose (70-99) mg/dL POC Glucose 150 H 175 H 215 H (70-99) mg/dL Lactic Acid (0.4-2.0) mmol/L Calcium (8.5-10.1) mg/dL Total Bilirubin (0.2-1.0) mg/dL AST (15-37) U/L ALT (12-78) U/L Alkaline Phosphatase (46-116) IU/L NT-Pro-B Natriuret Pep (0-125) pg/mL Total Protein (6.4-8.2) g/dL Albumin (3.4-5.0) g/dL 08/25/21 08/25/21 08/25/21 Range/Units 07:15 07:15 07:15 WBC 7.8 (4.0-10.2) K/uL RBC 4.29 (3.77-5.09) M/uL Hgb 12.0 (11.7-15.5) g/dL Hct 37.2 (34.0-46.0) % MCV 86.7 (84.0-98.0) fL MCH 28.0 L (28.2-33.3) pg MCHC 32.3 (31.7-36.0) g/dL RDW 14.2 H (11.2-14.1) % Plt Count 282 (150-350) K/uL Neut % (Auto) 52.7 (45.0-80.0) % Lymph % (Auto) 32.1 (10.0-50.0) % [place] % (Auto) 7.4 (2.0-14.0) % Eos % (Auto) 7.5 H (0.0-5.0) % Baso % (Auto) 0.3 (0.0-2.0) % Neut # (Auto) 4.12 (1.40-7.00) K/uL Lymph # (Auto) 2.51 (0.50-3.50) K/uL [place] # (Auto) 0.58 (0.00-1.00) K/uL Eos # (Auto) 0.59 H (0.00-0.50) K/uL Baso # (Auto) 0.02 (0.00-0.20) K/uL Sodium 143 (136-145) mmol/L Potassium 2.8 L* (3.5-5.1) mmol/L Chloride 106 (98-107) mmol/L Carbon Dioxide 26.8 (21.0-32.0) mmol/L Anion Gap 13.0 (7-15) meq/L BUN 19 H (7-18) mg/dL Creatinine 0.91 (0.51-1.17) mg/dL Est Cr Clr Drug Dosing 40.00 mL/min Estimated GFR (MDRD) 58 mL/min Glucose 284 H (70-99) mg/dL POC Glucose (70-99) mg/dL Lactic Acid 0.7 (0.4-2.0) mmol/L Calcium 8.7 (8.5-10.1) mg/dL Total Bilirubin 0.4 (0.2-1.0) mg/dL AST 22 (15-37) U/L ALT 29 (12-78) U/L Alkaline Phosphatase 117 H (46-116) IU/L NT-Pro-B Natriuret Pep (0-125) pg/mL Total Protein 6.0 L (6.4-8.2) g/dL Albumin 3.0 L (3.4-5.0) g/dL 10/21/21 10/21/21 10/21/21 Range/Units 07:49 11:22 15:25 WBC (4.0-10.2) K/uL RBC (3.77-5.09) M/uL Hgb (11.7-15.5) g/dL Hct (34.0-46.0) % MCV (84.0-98.0) fL MCH (28.2-33.3) pg MCHC (31.7-36.0) g/dL RDW (11.2-14.1) % Plt Count (150-350) K/uL Neut % (Auto) (45.0-80.0) % Lymph % (Auto) (10.0-50.0) % [place] % (Auto) (2.0-14.0) % Eos % (Auto) (0.0-5.0) % Baso % (Auto) (0.0-2.0) % Neut # (Auto) (1.40-7.00) K/uL Lymph # (Auto) (0.50-3.50) K/uL [place] # (Auto) (0.00-1.00) K/uL Eos # (Auto) (0.00-0.50) K/uL Baso # (Auto) (0.00-0.20) K/uL Sodium (136-145) mmol/L Potassium 3.8 (3.5-5.1) mmol/L Chloride (98-107) mmol/L Carbon Dioxide (21.0-32.0) mmol/L Anion Gap (7-15) meq/L BUN (7-18) mg/dL Creatinine (0.51-1.17) mg/dL Est Cr Clr Drug Dosing mL/min Estimated GFR (MDRD) mL/min Glucose (70-99) mg/dL POC Glucose 264 H 256 H (70-99) mg/dL Lactic Acid (0.4-2.0) mmol/L Calcium (8.5-10.1) mg/dL Total Bilirubin (0.2-1.0) mg/dL AST (15-37) U/L ALT (12-78) U/L Alkaline Phosphatase (46-116) IU/L NT-Pro-B Natriuret Pep (0-125) pg/mL Total Protein (6.4-8.2) g/dL Albumin (3.4-5.0) g/dL Med Orders - Current: Current Medications Acetaminophen (Acetaminophen 325 Mg Tab) 650 mg PO Q4H PRN PRN Reason: Pain Acetaminophen/Codeine Phosphate (Acetaminophen/Codeine 300-30 Mg Tab) 1 tab PO Q12HR PRN PRN Reason: Pain Allopurinol (Allopurinol 100 Mg Tab) 300 mg PO BID [facility] Last Admin: 08/25/21 07:54 Dose: 300 mg Documented by: Aspirin (Aspirin 81 Mg Tab.Ec) 81 mg PO BID [facility] Last Admin: 08/25/21 07:55 Dose: 81 mg Documented by: Calcium Carbonate/Glycine (Calcium Carbonate 500 Mg Tab.Chew) 500 mg PO DAILY PRN PRN Reason: GI upset Cyclobenzaprine HCl (Cyclobenzaprine 10 Mg Tab) 10 mg PO TID PRN PRN Reason: Spasms Escitalopram Oxalate (Escitalopram 20 Mg Tab) 10 mg PO DAILY [facility] Last Admin: 08/25/21 07:55 Dose: 10 mg Documented by: Hydrochlorothiazide (Hydrochlorothiazide 25 Mg Tab) 25 mg PO DAILY [facility] Last Admin: 08/25/21 07:56 Dose: 25 mg Documented by: Sodium Chloride (Normal Saline) 500 mls @ 250 mls/hr IV .BOLUS [facility] Last Admin: 08/24/21 14:28 Dose: 250 mls/hr Documented by: Potassium Chloride/Sodium Chloride (Normal Saline With 20 Meq Kcl) 1,000 mls @ 75 mls/hr IV ASDIRECTED [facility] Last Admin: 08/25/21 10:47 Dose: 75 mls/hr Documented by: Insulin Human Regular (Insulin Regular, Human 100 Units/Ml 3 Ml Vial) 0 unit SUBCUT BIDAC [facility]; Protocol Last Admin: 08/25/21 07:56 Dose: 3 units Documented by: Levothyroxine Sodium (Levothyroxine 100 Mcg Tab) 100 mcg PO ACBREAKFAST [facility] Last Admin: 08/25/21 07:55 Dose: 100 mcg Documented by: Metformin HCl (Metformin 500 Mg Tab) 1,000 mg PO BIDMEALS [facility] Last Admin: 08/25/21 07:54 Dose: 1,000 mg Documented by: Senna/Docusate Sodium (Docusate Sodium/Sennosides 50-8.6 Mg Tab) 1 tab PO BEDTIME [facility] Last Admin: 08/24/21 19:08 Dose: Not Given Documented by: Discontinued Medications Dextrose/Water (50% Dextrose In Water 50 Ml Syringe) 50 ml IVPUSH ASDIRECTED PRN PRN Reason: Hypoglycemia Dextrose/Water (50% Dextrose In Water 50 Ml Syringe) 50 ml IVPUSH ASDIRECTED PRN PRN Reason: Hypoglycemia Glucagon (Glucagon,Human Recombinant 1 Mg Vial) 1 mg IM ASDIRECTED PRN PRN Reason: Hypoglycemia Glucagon (Glucagon,Human Recombinant 1 Mg Vial) 1 mg IM ASDIRECTED PRN PRN Reason: Hypoglycemia Insulin Human Regular 100 unit (/ Sodium Chloride) 100 mls @ 6.35 mls/hr IV TITRATE [facility]; Protocol Last Admin: 08/24/21 14:20 Dose: 0.1 units/kg/hr, 6.35 mls/hr Documented by: Sodium Chloride (Normal Saline) 1,000 mls @ 70 mls/hr IV .BOLUS ONE Stop: 08/25/21 07:14 Last Admin: 08/24/21 17:35 Dose: 70 mls/hr Documented by: Insulin Human Regular (Insulin Regular, Human 100 Units/Ml 3 Ml Vial) 20 unit SUBCUT ONETIME ONE Stop: 08/24/21 13:52 Last Admin: 08/24/21 14:06 Dose: 20 units Documented by: Insulin Human Regular (Insulin Regular, Human 100 Units/Ml 3 Ml Vial) Confirm Administered Dose 300 unit .ROUTE .STK-MED ONE Stop: 08/24/21 14:16 Last Admin: 08/24/21 14:28 Dose: Not Given Documented by: Potassium Chloride (Potassium Chloride 10 Meq Tab.Er) 20 meq PO ONETIME ONE Stop: 08/24/21 16:59 Last Admin: 08/24/21 17:39 Dose: 20 meq Documented by: Potassium Chloride (Potassium Chloride 10 Meq Tab.Er) 20 meq PO ONETIME ONE Stop: 08/24/21 20:01 Last Admin: 08/24/21 19:08 Dose: Not Given Documented by: Potassium Chloride (Potassium Chloride 10 Meq Tab.Er) 20 meq PO ONETIME ONE Stop: 08/25/21 10:17 Last Admin: 08/25/21 10:46 Dose: 20 meq Documented by: Potassium Chloride (Potassium Chloride 10 Meq Tab.Er) 20 meq PO ONETIME ONE Stop: 08/25/21 12:01 Last Admin: 08/25/21 11:44 Dose: 20 meq Documented by: Potassium Chloride (Potassium Chloride 10 Meq Tab.Er) 20 meq PO ONETIME ONE Stop: 08/25/21 14:01 Last Admin: 08/25/21 13:54 Dose: 20 meq Documented by: Potassium Chloride (Potassium Chloride 10 Meq Tab.Er) 20 meq PO ONETIME ONE Stop: 08/25/21 16:01 - Exam General: Reports: Alert, Cooperative, No Acute Distress HEENT: Reports: Pupils Equal, Pupils Reactive, EOMI, Mucous Membr. Moist/[place] Neck: Reports: Supple Lungs: Reports: Clear to Auscultation, Normal Respiratory Effort Cardiovascular: Reports: Regular Rate, Regular Rhythm GI/Abdominal Exam: Normal Bowel Sounds, Soft, Non-Tender, No Distention (Female) Exam: Deferred Rectal (Female) Exam: Deferred Back Exam: Denies: CVA Tenderness (L), CVA Tenderness (R), Muscle Spasm Extremities: Non-Tender, Normal Capillary Refill Skin: Reports: Warm, Dry Neurological: Reports: No New Focal Deficit Psy/Mental Status: Reports: Alert, Normal Affect, Normal Mood
== END 2021-08-25 17:18 | disposition home or self-care (01) | DRG 638 ==
LOC: LL.ED 12:16 → LL.MS 14:59
PROVIDERS: ADMIT Emergency Medicine; ATTEND Emergency Medicine
DX: E11.65 Type 2 diabetes mellitus with hyperglycemia (principal); E11.8 Type 2 diabetes mellitus with unspecified complications; E44.0 Moderate protein-calorie malnutrition; R41.0 Disorientation, unspecified; I25.810 Atherosclerosis of coronary artery bypass graft(s) without angina pectoris; I42.9 Cardiomyopathy, unspecified; E87.6 Hypokalemia; I25.10 Atherosclerotic heart disease of native coronary artery without angina pectoris; R79.89 Other specified abnormal findings of blood chemistry; K21.9 Gastro-esophageal reflux disease without esophagitis; I50.9 Heart failure, unspecified; Z51.5 Encounter for palliative care; Z66 Do not resuscitate; M89.49 Other hypertrophic osteoarthropathy, multiple sites; E86.0 Dehydration; H91.90 Unspecified hearing loss, unspecified ear; H54.7 Unspecified visual loss; E78.00 Pure hypercholesterolemia, unspecified; I11.0 Hypertensive heart disease with heart failure; J44.9 Chronic obstructive pulmonary disease, unspecified; K59.09 Other constipation; R32 Unspecified urinary incontinence; M19.90 Unspecified osteoarthritis, unspecified site; F32.9 Major depressive disorder, single episode, unspecified; F41.9 Anxiety disorder, unspecified; M54.9 Dorsalgia, unspecified; G89.29 Other chronic pain; M54.2 Cervicalgia; M81.0 Age-related osteoporosis without current pathological fracture; G30.9 Alzheimer's disease, unspecified; F02.80 Dementia in other diseases classified elsewhere, unspecified severity, without behavioral disturbance, psychotic disturbance, mood disturbance, and anxiety; E11.9 Type 2 diabetes mellitus without complications; E83.42 Hypomagnesemia; E03.9 Hypothyroidism, unspecified; I87.8 Other specified disorders of veins; Z90.89 Acquired absence of other organs; Z79.82 Long term (current) use of aspirin; Z79.84 Long term (current) use of oral hypoglycemic drugs; Z79.890 Hormone replacement therapy; Z79.899 Other long term (current) drug therapy; Z88.8 Allergy status to other drugs, medicaments and biological substances; Z88.6 Allergy status to analgesic agent; Z88.5 Allergy status to narcotic agent; I25.2 Old myocardial infarction; Z95.0 Presence of cardiac pacemaker; Z95.5 Presence of coronary angioplasty implant and graft; Z86.010 Personal history of colon polyps; Z95.810 Presence of automatic (implantable) cardiac defibrillator; Z95.1 Presence of aortocoronary bypass graft; Z68.22 Body mass index [BMI] 22.0-22.9, adult
CPT/HCPCS: 36415; 36600; 71045; 80053; 81001; 82009; 82803; 82947; 83036; 83605; 83735; 83880; 84132; 85025; 93005; 97163-GP; 97165-GO; 99285-25; A9270-GY; J1815-GY; J3480; J7030; J7040

== ENCOUNTER 2021-11-25 18:12 | Emergency (ER) | payer MEDICARE, OTHER ==
[2021-11-25 19:13] LABS: ANION GAP 10.9 meq/L (7-15); CHLORIDE,CL 104 mmol/L (98-107); SODIUM,NA 145 mmol/L (136-145)
[2021-11-25] MEDS ORDERED: metFORMIN 500 MG Tab PO ONE (20:26)
[2021-11-25] MEDS ORDERED: Allopurinol 100 MG Tab PO ONE (20:26)
[2021-11-25] MEDS ORDERED: Magnesium Oxide 400 MG Tab PO ONE (20:27)
[2021-11-25] MEDS ORDERED: Melatonin 3 MG Tab PO ONE (20:28)
[2021-11-25] MEDS ORDERED: Meclizine 25 MG Tab PO ONE (20:28)
== END 2021-11-25 21:20 | disposition home or self-care (01) ==
LOC: LL.ED 18:12
DX: R53.1 Weakness (principal); I11.0 Hypertensive heart disease with heart failure; I50.9 Heart failure, unspecified; E78.00 Pure hypercholesterolemia, unspecified; I25.10 Atherosclerotic heart disease of native coronary artery without angina pectoris; I25.2 Old myocardial infarction; J44.9 Chronic obstructive pulmonary disease, unspecified; E11.9 Type 2 diabetes mellitus without complications; E03.9 Hypothyroidism, unspecified; Z95.1 Presence of aortocoronary bypass graft; Z88.8 Allergy status to other drugs, medicaments and biological substances; Z79.82 Long term (current) use of aspirin; Z79.899 Other long term (current) drug therapy
CPT/HCPCS: 36415; 71045; 80053; 81001; 83605; 83735; 83880; 85025; 87040; 87086; 93010; 99285; 99285-25; A9270-GY